=== PATIENT | female | born 1955 | race Caucasian/White ===

== ENCOUNTER → 2018-07-09 13:06 | Outpatient (CLI) | payer OTHER, SELFPAY ==
--- NOTE | 2018-07-09 13:14 | BI_ITS ---
MAMMOGRAPHY - BILATERAL SCREENING REASON FOR EXAM: Female, 63 years old. Routine annual screening examination. PERTINENT HISTORY: Non-contributory. TECHNIQUE: Digital bilateral breast james (3D mammographic acquisition) in the CC and MLO projections. 2-D mediolateral oblique (MLO) and craniocaudad (CC) views of both breasts were obtained. CAD: Full Field Digital Mammography with Computer Added Detection was performed. COMPARISON: Comparison is made with prior examination dated September 18, 2013. FINDINGS: Breast Composition: The breasts are heterogeneously dense, which may obscure small masses. There are no dominant masses or suspicious calcifications. Stable calcifications in the right breast most likely secretory in nature. No other significant abnormalities are identified. There has been no significant change since the prior study. BI/SCREENING MAMM (CAD), BILAT IMPRESSION: Stable bilateral screening mammogram. Yearly follow-up mammogram recommended. (A) ASSESSMENT CATEGORY: BIRADS Category 2: Benign. A letter regarding these results will be sent to the patient by the facility within 30 days. Approximately 10% of breast cancers are not detected by mammography. A normal mammogram should not delay biopsy of a clinically suspicious abnormality. [id number] Electronically Signed: Salomón Roberson MD at 8:59 EST Tel [phone], Service support ,
== END ==
PROVIDERS: Family Provider Internal Medicine; PCP Internal Medicine
DX: Z12.31 Encounter for screening mammogram for malignant neoplasm of breast (principal)
CPT/HCPCS: 77063; 77067

== ENCOUNTER → 2021-01-25 12:53 | Outpatient (CLI) | payer MEDICARE, SELFPAY ==
--- NOTE | 2021-01-25 12:59 | EKG12_ITS ---
Test Reason : ROUTINE Blood Pressure : / mmHG Vent. Rate : 097 BPM Atrial Rate : 097 BPM P-R Int : 142 ms QRS Dur : 088 ms QT Int : 332 ms P-R-T Axes : 067 075 081 degrees QTc Int : 421 ms Normal sinus rhythm Normal ECG Confirmed by MARIA R POSEY, HERMANN ([id number]), editor & co founder JAVIER GARCIA ([id number]) on 01/28/2021 1:34:14 PM Referred By: Maxine Stephens Confirmed By:HERMANN HECK MD
== END ==
PROVIDERS: Referring Provider Nurse Practitioner Adult Health; Visit Provider Nurse Practitioner Adult Health
DX: R00.2 Palpitations (principal)
CPT/HCPCS: 93005

== ENCOUNTER 2021-08-12 16:31 | Outpatient (CLI) | payer MEDICARE, SELFPAY ==
--- NOTE | 2021-08-12 16:45 | RAD_ITS ---
STUDY: XR Shoulder Min 2 Views REASON FOR EXAM: Female, 66 years old. PAIN TECHNIQUE: XR Shoulder Min 2 Views COMPARISON: None. FINDINGS: Normal glenohumeral articulation. There is degenerative arthrosis of the acromioclavicular joint without inferior osseous spur formation. Normal acromion. Normal humeral head and visualized proximal humerus. There is periarticular soft tissue calcification consistent with a calcific tendinitis. Normal visualized pulmonary apex. RAD/Shoulder min 2 Views IMPRESSION: There is degenerative arthrosis of the acromioclavicular joint without inferior osseous spur formation. There is periarticular soft tissue calcification consistent with a calcific tendinitis. Electronically Signed: Genaro Cortez MD at 18:56 EST Reading Location ID and State: [facility] / [place] , Service support ,
== END 2021-08-12 23:59 | disposition home or self-care (01) ==
PROVIDERS: Referring Provider Nurse Practitioner Adult Health; Visit Provider Nurse Practitioner Adult Health
DX: M25.511 Pain in right shoulder (principal)
CPT/HCPCS: 73030

== ENCOUNTER 2021-08-30 11:20 | Outpatient (CLI) | payer MEDICARE, SELFPAY ==
[2021-08-30 12:38] LABS: Absolute Lymphocyte Count 2.13 X10^3/uL (0.83-4.51); Absolute Neutrophil Count 3.5 X10^3/uL (2.0-7.7); Basophil# 0.07 X10^3/uL; Basophil% 1.1 % (0-1); Eosinophil# 0.27 X10^3/uL; Eosinophils% 4.2 % (0-5); Hemoglobin 14.2 g/dL (12.0-15.0); Lymphocyte # 2.13 X10^3/ul (0.83-4.51); Lymphocyte % 33.1 % (19-41); Mean Corpuscular Volume 90.7 fL (81-99); Monocyte# 0.42 X10^3/uL; Monocyte% 6.5 % (0-10); NRBC Flagged by Analyzer 0 % (0-5); Neutrophil # 3.53 X10^3/uL (2.7-7.7); Neutrophil % 54.8 % (47-70); Platelet Count 326 K/mm3 (150-450); RBC Distribution Width CV 12.7 % (11.6-14.6); RBC Distribution Width SD 42.3 fl (35.1-43.9); Red Blood Count 4.74 M/mm3 (4.2-5.4); White Blood Count 6.4 K/mm3 (4.4-11.0)
[2021-08-30 13:42] LABS: ALB/GLOB Ratio 1.1 RATIO (0.9-2.4); AST(SGOT) 33 U/L (15-37); Alanine Aminotransfer ALT/SGPT 58 U/L (13-56); Albumin, Serum 3.8 g/dL (3.2-5.0); Alkaline Phosphatase 65 U/L (45-117); Anion Gap 5 (5-15); BUN 12 mg/dL (7-18); BUN/Creat Ratio 19.1 RATIO (10-20); Calcium,Total 8.8 mg/dL (8.5-10.1); Chloride 106 mmol/L (98-107); Creatinine, Serum 0.63 mg/dL (0.55-1.02); EST Glomerular Filtration Rate 101 mL/min (>60); Est Glom Filt Rate - Afr Amer 122 mL/min (>60); Globulin 3.6 g/dL (2.2-4.2); Glucose 199 mg/dL (74-106); Potassium 4.2 mmol/L (3.5-5.1); Protein, Total 7.4 g/dL (6.4-8.2); Sodium Level 139 mmol/L (136-145); Thyroid Stim Hormone (TSH) 1.22 uIU/mL (0.358-3.74)
== END 2021-08-30 23:59 | disposition home or self-care (01) ==
LOC: LAB 11:21
PROVIDERS: Referring Provider Nurse Practitioner Adult Health; Visit Provider Nurse Practitioner Adult Health
DX: E11.65 Type 2 diabetes mellitus with hyperglycemia (principal)
CPT/HCPCS: 36415; 80053; 84443; 85025

== ENCOUNTER 2021-09-21 14:00 | Outpatient (RCR) | payer MEDICARE, SELFPAY ==
--- NOTE | 2021-08-17 11:15 | HP.PTEVAL_ITS ---
Patient's Visit Information JESSICA POPE is a 66 year old F referred to Physical Therapy by LILIANE Hawthorne with a diagnosis of R shoulder pain. Date of Evaluation: 08/17/21 Physical Therapist: Deepak Roque DPT, OCS, CSCS - Visit Plan Frequency: 2-3x /Week Duration: 4-6 Weeks Plan: 2-3x/week for 4-6 weeks for. 1. US R supraspinatus. 2. R shoulder mobs and ROM focus flexion and IR and stretch corss body and sleeper as tolerated. 3. RC and postural strength. 4. STM R shoulder, CFM as needed. 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 She has R shoulder pain and is R handed. Posterior R shoulder pain and top of shoulder. It is worse to lie down at night and wakes her up at times. It has been hurting a couple weeks. May have flared it shovelling snow but not a certain instance where she noted it. She is mostly comfortable at rest, stretching it across her body hurts, reaching OH hurts but she can do it. Hurts to reach behind her and to fasten seat belt. Has tried acetominophen and lidocaine. 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 Basic ADLs nare getting done but can be painful. - Pain R shoulder Pain Intensity (Out of 10): 1 Pain Intensity Range: 0, 8 - Objective Posture is forward head and protracted scapula. Tender to palpation R supraspinatus insertion moderately. + HK and + neer on R, - ext rotation lag test, - drop arm. Cervical aROM is painfree and 55 ext adn 60 B rotation. Scap mobility is fair and symmetrical. L shoulder AROM is 150 elevation and 75 ext rotation and L5 IR. R shoulder AROM 130 elevation and 70 ext rotation adn PSIS IR all limited by pain and slightly better passively but limited by pain. Elbow and wrist aROM WNL and painfree. reflexes 2/3 bi and triceps. Sensation UE WNL to gross light touch. Gait and trasnfers are I. needed cues to put coat on without pain. r shoulder strength ext rotation 3+ and painful , IR 4- painful, elevation 4- and painful empty can and abduction and flexion. L shoulder 4-/5 - Balance/Special Test Scores Quick DASH Score: 29.5450 - Goals Goal 1:: Full aROM R shoulder without pain 150 flexion and L5 IR. Goal Time Frame: 4-6 Weeks Goal 2:: Patient feel 75% improvement in overall condition with pain 1/10 at worst. Goal Time Frame: 4-6 Weeks Goal 3:: I appropr HEP to minimize future problem Goal Time Frame: 4-6 Weeks Goal 4:: Quick DASH score 15 or better Goal Time Frame: 4-6 Weeks - Rehabilitation Potential Physical Therapy Diagnosis: R shoulder impingement tendonitis/degeneration Rehabilitation Potential: Fair - Anticipated Interventions Patient/Client Instruction: Educate patient on: Condition, Plan of Care For the Purpose of:: To decrease pain, To increase ROM, To improve muscle performance and motor function, To increase tolerance to activity/condition/position, To improve ability of physical actions for home/community/work/leisure Therapeutic Exercise to Include: Strength training, Postural training, Flexibilty training, Passive ROM, Active ROM, Scapular Strength/Stabilization For the Purpose of:: To decrease pain, To increase ROM, To improve nutrient delivery to tissue, To improve muscle performance and motor function, To improve ability of physical actions for home/community/work/leisure Manual Therapy Techniques to Include: Mobilization, Passive ROM, Soft tissue mobilization For the Purpose of:: To decrease pain, To increase ROM, To improve muscle performance and motor function, To increase tolerance to activity/condition/position Ultrasound (thermal/non thermal): Yes For the Purpose of:: To decrease pain, To decrease swelling/inflammation Thank you for the opportunity to evaluate your patient. For Medicare and Medicare HMO plans, please review the plan of care and approve it. It will need to be FAXED BACK to us at [phone] for Medicare purposes. For Medicare only, by signing this I certify the plan of care. Please let me know if there are questions or concerns regarding this plan of care. Physician Signature: Date:
--- NOTE | 2021-09-06 09:53 | HP.PTREVAL ---
Georgie Red, MARISSA-C, It has been my pleasure to treat JESSICA POPE over the last 7 visits for R shoulder pain. Please see the progress note below for an update on the physical therapy plan of care! Subjective: Getting better. Less pain at night and can sleep thru the night. Feels popping at times. Paion is much less. Up to 3/10 over the weekend with reaching up or behind. Feels good at rest. Still unscrewing jars can be painful. Will see ortho at [facility] in September. Objective/Function: Full aROM but end range IR still painful and slow, painful arc with elevation. External rotation still mildly painful to resist. Plan Plan: f/u two weeks to recheck R shoulder and d/c if doing better with IR, resisted Er and elevation. Will see ortho in 3-4 weeks and we can help her with that decision. Balance/Gait/Functional tests - Balance/Special Test Scores Quick DASH Score: 15.9075 Goals Goal 1:: Full aROM R shoulder without pain 150 flexion and L5 IR. Goal Time Frame: 4-6 Weeks Goal Progress: Goal Met ROM with pain IR Goal 2:: Patient feel 75% improvement in overall condition with pain 1/10 at worst. Goal Time Frame: 4-6 Weeks Goal Progress: Goal Met Goal 3:: I appropr HEP to minimize future problem Goal Time Frame: 4-6 Weeks Goal Progress: Goal Met Goal 4:: Quick DASH score 15 or better Goal Time Frame: 4-6 Weeks Goal Progress: Progressing Anticipated Interventions Patient/Client Instruction: Educate patient on: Condition, Plan of Care For the Purpose of:: To decrease pain, To increase ROM, To improve muscle performance and motor function, To increase tolerance to activity/condition/position, To improve ability of physical actions for home/community/work/leisure Therapeutic Exercise to Include: Strength training, Postural training, Flexibilty training, Passive ROM, Active ROM, Scapular Strength/Stabilization For the Purpose of:: To decrease pain, To increase ROM, To improve nutrient delivery to tissue, To improve muscle performance and motor function, To improve ability of physical actions for home/community/work/leisure Manual Therapy Techniques to Include: Mobilization, Passive ROM, Soft tissue mobilization For the Purpose of:: To decrease pain, To increase ROM, To improve muscle performance and motor function, To increase tolerance to activity/condition/position Ultrasound (thermal/non thermal): Yes For the Purpose of:: To decrease pain, To decrease swelling/inflammation Please do not hesitate to contact me at [phone] by phone or if you have questions or concerns regarding this new plan of care! Sincerely, Deepak Roque, DPT, OCS, CSCS
--- NOTE | 2021-09-21 14:37 | HP.PTDCSUM ---
It has been my pleasure to treat JESSICA POPE referred by LILIANE Hawthorne, with the diagnosis of R shoulder pain for a total of 8 visit(s). Discharge Date: 09/21/21 Please see the following information for a summary of their discharge status. Subjective: Doing OK. Did exercises most days. Still has problems at night with pain. Pain in shoulder 6/10. Lifting hurts to 8/[address] Donald for shoulder next week. Activities are OK outside of heavier housework like vaccuuming and lifting heavier objects. Getting dressed behind her can hurt. Non compliant with exercises R shoulder Pain Intensity (Out of 10): 6 % Improvement: 50 Objective/Function: Full aROM R shouldr with some pain end range flexiona dn IR. 155 flexion. Strength is 4/5 without pain except empty can and flexion. Goal 1:: Full aROM R shoulder without pain 150 flexion and L5 IR. Goal Progress: Goal Met ROM with pain IR Goal 2:: Patient feel 75% improvement in overall condition with pain 1/10 at worst. Goal Progress: Goal Met Goal 3:: I appropr HEP to minimize future problem Goal Progress: Goal Met Goal 4:: Quick DASH score 15 or better Goal Progress: Not Progressing Plan: d/c to HEP, pt to ortho doctor next week appropriately. Discharge Comments: Pt to continue with HEP and see ortho next week. If there are questions or concerns regarding this patient's physical therapy, please feel free to call me at [phone]. Thank you for the referral of this patient. Sincerely, Deepak Roque, DPT, OCS, CSCS Balance/Gait/Functional tests - Balance/Special Test Scores Quick DASH Score: 18.1800
== END 2021-09-21 14:40 | disposition home or self-care (01) ==
LOC: PT 14:00
PROVIDERS: Referring Provider Nurse Practitioner Adult Health; Visit Provider Nurse Practitioner Adult Health
DX: M25.511 Pain in right shoulder (principal)
CPT/HCPCS: 97110; 97140; 97161; 97164; 97530

== ENCOUNTER → 2022-03-10 | Outpatient (CLI) | payer MEDICARE, SELFPAY ==
[2022-03-10 11:32] LABS: Anion Gap 8 (5-15); BUN 11 mg/dL (7-18); BUN/Creat Ratio 18.7 RATIO (10-20); Chloride 104 mmol/L (98-107); Cholesterol 115 mg/dL (200); Creatinine, Serum 0.59 mg/dL (0.55-1.02); EST Glomerular Filtration Rate 109 mL/min (>60); Est Glom Filt Rate - Afr Amer 131 mL/min (>60); Glucose 137 mg/dL (74-106); High Density Lipoprotein 51 mg/dL; Potassium 3.9 mmol/L (3.5-5.1); Sodium Level 139 mmol/L (136-145); Triglycerides 144 mg/dL; Very Low Density Lipoprotein 29 mg/dL (5-40)
== END | disposition home or self-care (01) ==
DX: E11.65 Type 2 diabetes mellitus with hyperglycemia (principal)
CPT/HCPCS: 36415; 80048; 80061

== ENCOUNTER 2022-06-04 08:40 | Emergency (ER) | payer MEDICARE, SELFPAY ==
[2022-06-04 08:42] VITALS: BP 147/71; PULSE 105; RESP 16; TEMP 36.4; O2SAT 99; BMI 28.3
--- NOTE | 2022-06-04 09:12 | RAD_ITS ---
STUDY: X-RAY - LEFT FOOT CLINICAL: Female, 67 years old. Trauma TECHNIQUE: 3 view(s) of the foot. COMPARISON: None. FINDINGS: There are no demonstrated acute fractures. The bony structures are mildly demineralized. Moderate-sized sushma are calcaneal spur noted. Mild cortical osteophyte formation is also present over the dorsum of the navicular cuneiform and second TMT articulation. Normal talus, calcaneus, and tarsal bones. Normal visualized subtalar, talonavicular, calcaneocuboid, tarsal and tarsometatarsal articulations. Normal metatarsi. Normal metatarsophalangeal joint of the great toe. There is hypertrophy and degeneration of the sesamoid bones of the great toe. Normal interphalangeal joint of the great toe. Normal phalanges of the great toe. Normal second through fifth metatarsophalangeal joints. Normal interphalangeal joints and phalanges of the lesser toes. The soft tissue structures are unremarkable. There is no demonstrated fracture. RAD/Foot min 3 Views IMPRESSION: 1. No visualized acute fracture. Scattered degenerative changes throughout the foot. Electronically Signed: George Latif MD at 9:32 EST ,
--- NOTE | 2022-06-04 09:12 | RAD_ITS ---
STUDY: X-RAY - LEFT KNEE REASON FOR EXAM: Female, 67 years old. INJURY TECHNIQUE: 4 view(s) of the knee. COMPARISON: None. FINDINGS: There is a mild impaction fracture with slight concavity/depression of the articular surface of the lateral tibial plateau associated with a moderate size joint effusion. No additional fractures are seen. Normal visualized distal femur. Normal fibula. Normal proximal tibiofibular articulation. Normal medial femorotibial compartment. There is mild degenerative arthrosis of the lateral femorotibial compartment. There is moderate degenerative arthrosis of the patellofemoral articulation. The soft tissue structures are unremarkable. RAD/Knee 4 or More Views IMPRESSION: 1. Mild impaction fracture of the lateral tibial plateau and moderate size joint effusion Electronically Signed: George Latif MD at 9:34 EST ,
[2022-06-04] MEDS: oxyCODONE 5 MG Tablet PO (10:35)
--- NOTE | 2022-06-04 11:10 | EX.ED.DYSGE1 ---
HPI History of Present Illness Chief Complaint: Lower Extremity Injury [facility] Medical History (Updated 06/04/22 @ 11:[address] Lev Sethi MD) Diabetes mellitus High cholesterol HTN (hypertension) Home Medications dulaglutide 0.75 mg/0.5 mL subcutaneous pen injector (Trulicity) 0.75 mg subcut QWEEK 06/04/22 [History Last Taken Unknown] oxycodone-acetaminophen 5 mg-325 mg tablet (Percocet) 1 tab PO Q6H PRN pain 5 days #20 tabs 06/04/22 [Rx Last Taken Unknown] pioglitazone 30 mg tablet 30 mg PO DAILY 06/04/22 [History Last Taken Unknown] sitagliptin phosphate 50 mg-metformin 1,000 mg tablet (Janumet) 1 tab PO BID 06/04/22 [History Last Taken Unknown] Allergy/AdvReac Type Severity Reaction Status Date / Time SNAPPLE Allergy Swelling Uncoded 06/04/22 08:43 Social History Smoking Status: Never smoker EXAM Physical Exam Const Vital Signs: 06/04/22 08:42 Temperature 97.6 F L Temperature Source Temporal Pulse Rate 105 H Respiratory Rate 16 Blood Pressure 147/71 H Blood Pressure Mean 96 Pulse Ox 99 Oxygen Delivery Method Room Air MDM MDM MDM Narrative Medical decision making narrative: X-rays show impacted lateral tibial plateau fracture. I discussed case with orthopedics. Patient will have knee immobilizer, pain meds, we will are seeing if we can get a walker for her. She will follow-up as an outpatient. Radiography Diagnostic Testing: Clinical Impression(s) from Imaging Studies Foot X-Ray 06/04/22 09:12 IMPRESSION: 1. No visualized acute fracture. Scattered degenerative changes throughout the foot. Electronically Signed: George Latif MD at 9:32 EST , Knee X-Ray 06/04/22 09:12 IMPRESSION: 1. Mild impaction fracture of the lateral tibial plateau and moderate size joint effusion Electronically Signed: George Latif MD at 9:34 EST , X-rays of the foot show no acute process. These are read by radiology. X-rays of the knee looked at by me and read by radiology do show a lateral tibial plateau impaction fracture with moderate effusion. This is consistent with her injury and pain. Discharge Plan Triage Chief Complaint: Lower Extremity Injury ED Provider: Lev Sethi Dx/Rx/DC Orders Clinical Impression: Tibial plateau fracture, left, Fall at home Instructions: ED Fracture, Knee Prescriptions: New oxycodone-acetaminophen [Percocet] 5-325 mg tablet 1 tab PO Q6H PRN (Reason: pain) 5 Days Qty: 20 0RF No Action pioglitazone 30 mg tablet 30 mg PO DAILY Janumet 50-1,000 mg Tablet 1 tab PO BID Trulicity 0.75 mg/0.5 mL pen injector 0.75 mg SUBCUT QWEEK Other Ambulatory Orders: Walker (Routine) Location: None Selected Ordered By: Dr. Lev Sethi Primary Care Provider: [facility],Hamida Molina Referrals: Nasim Kenyon DO [Med Staff - Active Staff] - 5-7 Days [facility],Hamida Molina [Primary Care Provider] - Disposition Disposition: Home, Self Care
== END 2022-06-04 12:18 | disposition home or self-care (01) ==
PROVIDERS: Emergency Provider Emergency Medicine; Visit Provider Emergency Medicine
DX: S82.122A Displaced fracture of lateral condyle of left tibia, initial encounter for closed fracture (principal); E11.9 Type 2 diabetes mellitus without complications; W18.30XA Fall on same level, unspecified, initial encounter; Y92.009 Unspecified place in unspecified non-institutional (private) residence as the place of occurrence of the external cause; I10 Essential (primary) hypertension; E78.00 Pure hypercholesterolemia, unspecified; Z79.899 Other long term (current) drug therapy; Z79.84 Long term (current) use of oral hypoglycemic drugs
CPT/HCPCS: 73564; 73630; 99283

== ENCOUNTER 2023-05-27 19:41 | Emergency (ER) | payer MEDICARE, SELFPAY ==
[2023-05-27 19:42] VITALS: BP 164/70; RESP 18; TEMP 37.6; O2SAT 98
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
--- NOTE | 2023-05-27 20:00 | CT_ITS ---
INDICATION: cervical pain EXAMINATION: CT CERVICAL SPINE - CT Spine Cervical W/O Contrast Injection TECHNIQUE: Helically acquired images were obtained of the cervical spine. 2D reformatted images were reviewed. A radiation dose optimization technique was used for this scan. IV Contrast dosage and agent: None. RADIATION DOSAGE (If Supplied By Facility): CTDIvol = ( 18.66 ) mGy, DLP = ( 373.97 ) mGycm COMPARISON: None. FINDINGS: ALIGNMENT: No subluxation. Straightening of the normal curvature. MINERALIZATION: Normal. VERTEBRAL BODIES: No fracture or acute abnormality. DISC SPACES: Disc space narrowing with osteophytes most pronounced C5-C7. POSTERIOR ELEMENTS: Mild facet arthropathy at several levels. SPINAL CANAL: Decreased AP diameter secondary to posterior disc osteophytes most pronounced at C5-6 and C6-7. PARASPINAL SOFT TISSUES: Unremarkable. Carotid arterial calcifications bilaterally. OTHER: None. CT/Spine Cervical without Contras IMPRESSION: No evidence of fracture or subluxation. Straightening of the normal curve may be due to positioning or muscle spasm. Degenerative changes with mild multilevel central canal stenosis. If there are any neurologic findings, MRI recommended for further evaluation. Electronically Signed: Emeli Myles MD at 21:26 EST ,
[2023-05-27] MEDS: Acetaminophen 500 MG Tablet 1000 MG PO (20:14)
[2023-05-27] MEDS: 0.9% Normal Saline (1000mL) 1,000 ML 1000 ML IV (20:14)
[2023-05-27] MEDS: Ondansetron 4 MG/2 ML Vial IV (20:14)
[2023-05-27 20:24] LABS: Absolute Lymphocyte Count 0.93 X10^3/uL (0.83-4.51); Absolute Neutrophil Count 10.4 X10^3/uL (2.0-7.7); Basophil# 0.07 X10^3/uL; Basophil% 0.6 % (0-1); Eosinophils% 2.4 % (0-5); Hematocrit 39.3 % (37-47); Hemoglobin 12.8 g/dL (12.0-15.0); Lymphocyte # 0.93 X10^3/ul (0.83-4.51); Lymphocyte % 7.4 % (19-41); Mean Corp Hgb Conc 32.6 g/dL (32-36); Mean Corpuscular Hgb 28.8 pg (27.0-32.0); Mean Corpuscular Volume 88.3 fL (81-99); Mean Platelet Vol. 9.9 fl (6.2-12.0); Monocyte# 0.83 X10^3/uL; Monocyte% 6.6 % (0-10); NRBC Flagged by Analyzer 0 % (0-5); Neutrophil # 10.39 X10^3/uL (2.7-7.7); Neutrophil % 82.4 % (47-70); Platelet Count 283 K/mm3 (150-450); RBC Distribution Width CV 13.2 % (11.6-14.6); RBC Distribution Width SD 42.6 fl (35.1-43.9); Red Blood Count 4.45 M/mm3 (4.2-5.4); White Blood Count 12.6 K/mm3 (4.4-11.0)
[2023-05-27 20:34] LABS: ALB/GLOB Ratio 0.9 RATIO (0.9-2.4); AST(SGOT) 21 U/L (15-37); Alanine Aminotransfer ALT/SGPT 36 U/L (13-56); Albumin, Serum 3.4 g/dL (3.2-5.0); Alkaline Phosphatase 53 U/L (45-117); Anion Gap 8 (5-15); BUN 11 mg/dL (7-18); BUN/Creat Ratio 12.4 RATIO (10-20); Calcium,Total 9.1 mg/dL (8.5-10.1); Chloride 97 mmol/L (98-107); Creatinine, Serum 0.89 mg/dL (0.55-1.02); EST Glomerular Filtration Rate 67 mL/min (>60); Est Glom Filt Rate - Afr Amer 81 mL/min (>60); Globulin 3.8 g/dL (2.2-4.2); Glucose 327 mg/dL (74-106); Lipase 43 U/L (13-75); Potassium 4.3 mmol/L (3.5-5.1); Protein, Total 7.2 g/dL (6.4-8.2); Sodium Level 132 mmol/L (136-145)
[2023-05-27 20:43] LABS: Lactic Acid 4.7 mmol/L (0.4-1.9)
[2023-05-27] MEDS: Ketorolac 15 MG/ML Vial IV (20:59)
--- NOTE | 2023-05-27 21:06 | RAD_ITS ---
INDICATION: weakness EXAMINATION/TECHNIQUE: X-RAY - XR Chest 1 View AP portable. 9:02 PM COMPARISON: None. FINDINGS: LINES/DEVICES: None. LUNGS: No consolidation. No pneumothorax. MEDIASTINUM: Aorta is atherosclerotic. CARDIAC SIL[place]ETTE: Not enlarged. BONES AND SOFT TISSUES: No acute abnormalities. RAD/Chest 1 View (Portable) IMPRESSION: No evidence of active intrathoracic disease. Electronically Signed: Emeli Myles MD at 21:45 EST ,
[2023-05-27 21:22] LABS: Mucous, Urine 0 SEEN /hpf (<or=2+); Red Blood Cells-Urine 0 SEEN /hpf (0-5); Squamous Epithelial Cells - UA 0 SEEN /hpf (5-10)
[2023-05-27 21:31] LABS: Color, Urine Yellow (Yellow); Glucose, Dipstick 1000 mg/dl (Normal); Ketone-Dipstick 15 mg/dl (Negative); Leukocyte Esterase-Dipstick Negative /ul (Negative); Nitrite-Dipstick Positive (Negative); Occult Blood-Urine Negative /ul (Negative); Protein-Dipstick 15 mg/dl (Negative); Urine Bilirubin Dipstick Negative (Negative); Urine Clarity Clear (Clear); Urine Urobilinogen Normal (Normal)
[2023-05-27] MEDS: 0.9% Normal Saline (1000mL) 1,000 ML 999 ML IV ×2 (21:31→22:36)
[2023-05-27 21:36] LABS: Bacteria 1+ /hpf (None Seen); White Blood Cells 0-5 SEEN /hpf (0-5)
[2023-05-28 00:13] LABS: Reflex Lactate? Y
[2023-05-28 00:24] VITALS: BP 136/86; PULSE 76; RESP 16; TEMP 36.4; O2SAT 98
== END 2023-05-28 00:26 | disposition home or self-care (01) ==
PROVIDERS: Nurse Practitioner; Emergency Provider Student in an Organized Health Care Education/Training Program; Visit Provider Student in an Organized Health Care Education/Training Program
DX: U07.1 COVID-19 (principal); E11.9 Type 2 diabetes mellitus without complications; E87.20 Acidosis, unspecified
CPT/HCPCS: 70450; 71045; 72125; 80053; 81001; 83605; 83690; 85025; 87040; 87428; 96361; 96374; 96375; 99283; J7030; J7050; A4216; J2405

== ENCOUNTER → 2023-07-14 | Outpatient (CLI) | payer MEDICARE, SELFPAY ==
--- OUTSIDE RECORDS SUMMARY | 2023-07-14 11:46 | XMS RPT_ITS | CCD ---
Author Name Unknown Address [address] [place] [address] Organization [facility] Care Team Providers Care Search Engine Optimization Analyst Name Role Phone Lisa Díaz Primary Care Provider Swihart, Lisa L Unavailable Swihart, Lisa L Unavailable Stephens PROJECT SUPERINTENDENT, Armando K Primary Care Provider Swihart, Lisa L Unavailable Stephens PROJECT SUPERINTENDENT, Armando K Primary Care Provider Swihart, Lisa L Unavailable Stephens PROJECT SUPERINTENDENT, Armando K Primary Care Provider PHYSICIAN, NONE Primary Care Physician Unavailab mic STEPHENS ARMANDO K Primary Care Unavailable GIANA JARAMILLO Referring Unavailable STEPHENS, ARMANDO K Primary Care Unavailable GIANA JARAMILLO Attending Unavailable STEPHENS, ARMANDO K Primary Care Unavailable LIZ GUPTA Attending Unavailable LIZ GUPTA Referring Unavailable STEPHENS, ARMANDO K Primary Care Unavailable GRZEGORZ MERCADO Attending Unava ilable PHYSICIAN, NONE Primary Care Unavailable Allergies Allergy Classification Reported Allergen(s) Allergy Type Date of Onset Reaction(s) Facility (12 sources) Flavoring Agent; Translations: [FLAVORING AGENT] Drug Allergy 04-03-2012 Swelling, Itching, Anaphylaxis [facility] Work Phone: Medications Current Medications Medication Drug Class(es) Dates Sig (Normalized) Sig (Original) benoxinate hydrochloride 4 mg/ml / fluorescein sodium 2.5 mg/ml ophthalmic solution (1 source) Diagnostic Dye Start: 03-10-2022 End: 03-11-2022 fluorescein-benoxi sandra 0.25-0.4 % 1 Drop (FLURESS) phenylephrine hydrochloride 25 mg/ml ophthalmic solution (1 source) alpha-1 Adrenergic Agonist Start: 03-10-2022 End: 03-11-2022 PHENYLephrine 2.5 % 1 Drop (AK-DILATE, DAVE-SYNEPHRINE) proparacaine hydrochloride 5 mg/ml ophthalmic solution (1 source) Local Anesthetic Start: 03-10-2022 End: 03-11-2022 proparacaine 0.5 % 1 Drop (ALCAINE) tropicamide 10 mg/ml ophthalmic solution (1 source) Anticholinergic Start: 03-10-2022 End: 03-11-2022 tropicamide 1 % 1 Drop (MYDRIACYL) Completed/Discontinued Medications Medication Drug Class(es) Dates Sig (Normalized) Sig (Original) 8 hr acetaminophen 650 mg extended release oral tablet (11 sources) take 2 tablets by mouth every eight hours as needed acetaminophen 650 mg CR tablet Take 1,300 mg by mouth every 8 hours as needed for pain. 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; Translations: [Combined forms of age-related cataract, left eye] Chronic Diabetes mellitus with complications (11 sources) Type 2 diabetes mellitus; Translations: [Type 2 diabetes mellitus with diabetic polyneuropathy] Onset: 10-01-2020 10-01-2020 Chronic Diabetes mellitus without complication (12 sources) Type 2 diabetes mellitus without complication; Translations: [Type 2 diabetes mellitus without complications] Onset: 11-13-2013 06-21-2021 Chronic Disorders of lipid metabolism (11 sources) Hyperlipidemia; Translations: [Hyperlipidemia, unspecified] Onset: 05-28-2020 05-28-2020 Chronic Essential hypertension (11 sources) Essential hypertension; Translations: [Essential (primary) hypertension] Onset: 05-28-2020 05-28-2020 Chronic Glaucoma (1 source) Preglaucoma, unspecified, bilateral; Translations: [Preglaucoma, unspecified] Chronic Miscellaneous mental health disorders (11 sources) Psychophysiologic insomnia; Translations: [Psychophysiologic insomnia] Onset: 11-05-2013 06-21-2021 Chronic Osteoarthritis (12 sources) Arthritis of knee; Translations: [Unilateral primary osteoarthritis, unspecified knee] Onset: 05-15-2012 05-15-2012 Chronic Other acquired deformities (11 sources) Scoliosis deformity of spine; Translations: [Scoliosis, unspecified] Onset: 08-08-2014 08-08-2014 Chronic Other connective tissue disease (2 sources) Impingement syndrome of right shoulder region; Translations: [Impingement syndrome of right shoulder] Episodic Other eye disorders (1 source) Posterior vitreous detachment of right eye; Translations: [Vitreous degeneration, right eye] Chronic Other eye disorders (1 source) Disorder of lacrimal gland; Translations: [Dry eye syndrome of bilateral lacrimal glands] Episodic Other eye disorders (1 source) Excess skin of eyelid; Translations: [Dermatochalasis of right upper eyelid] Episodic Other inflammatory condition of skin (11 sources) Rosacea; Translations: [Rosacea, unspecified] Onset: 01-18-2014 01-18-2014 Chronic Other non-traumatic joint disorders (2 sources) Chronic pain of right upper limb; Translations: [Pain in right shoulder] Episodic Other non-traumatic joint disorders (5 sources) Pain in right knee; Translations: [Pain in joint, lower leg] Onset: 01-02-2023 Episodic Other non-traumatic joint disorders (1 source) Pain in left knee; Translations: [Pain in both knees, unspecified chronicity] Onset: 01-02-2023 Episodic Residual codes; unclassified (11 sources) Obstructive sleep apnea syndrome; Translations: [Obstructive sleep apnea (adult) (pediatric)] Onset: 05-05-2014 08-22-2014 Chronic Spondylosis; intervertebral disc disorders; other back problems (20 sources) Cervical spondylosis; Translations: [Spondylosis without myelopathy or radiculopathy, cervical region] Onset: 05-06-2014 05-06-2014 Chronic Past or Other Problems Problem Classification Problem Date Documented Da te Episodic/Chronic Acquired foot deformities (11 sources) Left foot drop; Translations: [Foot drop, left foot] Onset: 11-13-2013 08-22-2014 Episodic Other bone disease and musculoskeletal deformities (11 sources) Osteopenia; Translations: [Other specified disorders of bone density and structure, unspecified site] Onset: 01-18-2014 06-21-2021 Episodic Other connective tissue disease (11 sources) Pain in buttock; Translations: [Myalgia, other site] Onset: 12-23-2013 12-23-2013 Episodic Other connective tissue disease (11 sources) Calcific tendinitis of right shoulder; Translations: [Calcific tendinitis of right shoulder] Onset: 05-26-2015 05-26-2015 Episodic Other connective tissue disease (11 sources) Impingement syndrome of left shoulder region; Translations: [Impingement syndrome of left shoulder] Onset: 07-15-2019 07-15-2019 Episodic Other nutritional; endocrine; and metabolic disorders (11 sources) Weight loss; Translations: [Abnormal weight loss] Onset: 11-13-2013 06-02-2014 Episodic Other nutritional; endocrine; and metabolic disorders (11 sources) Overweight; Translations: [Overweight] Onset: 05-26-2015 05-26-2015 Episodic Other skin disorders (11 sources) Loss of hair; Translations: [Nonscarring hair loss, unspecified] Onset: 12-31-2013 08-22-2014 Episodic Residual codes; unclassified (11 sources) Insomnia; Translations: [Insomnia, unspecified] Onset: 03-03-2014 06-21-2021 Episodic Spondylosis; intervertebral disc disorders; other back problems (20 sources) Neck pain; Translations: [Cervicalgia] Onset: 09-20-2012 12-31-2013 Episodic Results Test Name Value Interpretation Reference Range Facil ity Encounters Encounter Date Encounter Type Care Provider Facility Start: 03-13-2023 End: 03-13-2023 ambulatory ARMANDO STEPHENS Facility:[facility] Start: 03-01-2023 End: 03-02-2023 ambulatory GRZEGORZ GALLO Facility: Start: 03-01-2023 End: 03-01-2023 Patient encounter procedure GRZEGORZ GALLO [facility] Start: 01-02-2023 End: 01-02-2023 Orders Only Giana Jaramillo MD Work Phone: Orthopaedics Procedures Date Procedure Procedure Detail Performing Clinician Start: 01-02-2023 Arthrocentesis aspir &/inj major jt/bursa w/o us Giana Jaramillo MD Work Phone: Start: 01-02-2023 Radiologic exam knee complete 4/more views Giana Jaramillo MD Work Phone: Start: 03-10-2022 Computerized ophthal ottoniel imaging optic nerve Emily Vidales MD Work Phone: Start: 12-20-2021 Arthrocentesis aspir &/inj major jt/bursa w/o us Giana Jaramillo MD Work Phone: Start: 09-30-2021 Arthrocentesis aspir &/inj major jt/bursa w/o us Giana Jaramillo MD Work Phone: Start: 12-30-2019 Mammography Giana hopkins MD Work Phone: Start: 02-18-2019 Adult depression scr eening assessment Giana Jaramillo MD Work Phone: Start: 01-08-2019 Colonoscopy Giana hopkins MD Work Phone: Plan of Treatment Date Care Activity Detail Author Start: 01-08-2029 Colonoscopy COLONOSCOPY [facility] Start: 01-08-2029 COLORECTAL CANCER SCREENING COLORECTAL CANCER SCREENING [facility] Start: 03-03-2024 Urine microalbumin profile [facility] Start: 01-05-2024 Hepatitis B surface antibody level LDL CHOLESTEROL [facility] Start: 11-17-2023 3 comp foot exam completed DIABETIC FOOT EXAM [facility] Start: 04-06-2023 Hemoglobin A1c/Hemoglobin.total in Blood HBA1C [facility] Start: 03-10-2023 Hepatitis C antibody, confirmatory test DILATED RETINAL EXAM [facility] Start: 02-24-2023 Influenza vaccination [facility] Start: 06-26-2022 ADVANCE DIRECTIVE DISCUSSION ADVANCE DIRECTIVE DISCUSSION [facility] Start: 06-26-2022 DEPRESSION ASSESSMENT DEPRESSION ASSESSMENT [facility] Start: 02-24-2022 Influenza vaccination [facility] Start: 07-21-2021 Hepatitis C antibody, confirmatory test DILATED RETINAL EXAM [facility] Start: 06-26-2021 ADVANCE DIRECTIVE DISCUSSION ADVANCE DIRECTIVE DISCUSSION [facility] Start: 06-26-2021 DEPRESSION ASSESSMENT DEPRESSION ASSESSMENT [facility] Start: 05-28-2021 Hepatitis B screening URINE ALBUMIN:CREATININE RATIO [facility] Start: 02-10-2021 BONE DENSITY BONE DENSITY [facility] Start: 02-10-2021 Bone Density Screening Bone Density Screening [facility] Start: 02-10-2021 PNEUMOVAX AGE 65 AND OVER WITH 5YR LOOKBACK (#1) PNEUMOVAX AGE 65 AND OVER WITH 5YR LOOKBACK (#1) [facility] Start: 12-31-2020 Hemoglobin A1c/Hemoglobin.total in Blood HBA1C [facility] Start: 12-29-2020 3 comp foot exam completed DIABETIC FOOT EXAM [facility] Start: 12-29-2020 Mammography [facility] Start: 02-19-2020 Adult depression screening assessment DEPRESSION SCREENING [facility] Start: 05-26-2017 Hepatitis B surface antibody level LDL CHOLESTEROL [facility] Start: 2016 Hepatitis B Vaccine (1 of 3 - Risk 3-dose series) Hepatitis B Vaccine (1 of 3 - Risk 3-dose series) [facility] Start: 2016 RSV Vaccine (1 - 1-dose 60+ series) RSV Vaccine (1 - 1-dose 60+ series) [facility] Start: 03-03-2015 Pneumococcal Vaccine: 65+ (2 - PCV) Pneumococcal Vaccine: 65+ (2 - PCV) [facility] Start: 03-03-2015 PNEUMOCOCCAL: 65+ (2 - PCV) PNEUMOCOCCAL: 65+ (2 - PCV) [facility] Start: 02-10-2006 SHINGRIX VACCINE (1 of 2) SHINGRIX VACCINE (1 of 2) [facility] Start: 02-10-2001 COLOGUARD (FIT-DNA) COLOGUARD (FIT-DNA) [facility] Start: 02-10-[address] COLONOGRAPHY [facility] Start: 02-10-2001 FECAL OCCULT BLOOD FECAL OCCULT BLOOD [facility] Start: 02-10-2001 SIGMOIDOSCOPY SIGMOIDOSCOPY [facility] Start: 02-10-1974 ANNUAL PCP TEAM CHRONIC DISEASE VISIT ANNUAL PCP TEAM CHRONIC DISEASE VISIT [facility] Start: 02-10-1974 BP CONTROLLED (<130/80) BP CONTROLLED (<130/80) [facility] Start: 02-10-1974 HIV SCREENING HIV SCREENING [facility] Start: 02-10-1961 COVID-19 VACCINE (1) COVID-19 VACCINE (1) [facility] Start: 1955 COVID-19 VACCINE (#1) COVID-19 VACCINE (#1) [facility] CORNEAL TOPOGRAPHY A TLAS OU (BOTH EYES) CORNEAL TOPOGRAPHY ATLAS OU (BOTH EYES) OPHT Imaging Routine Combined forms of age-related cataract of left eye 1 Occurrences starting 03/10/2022 [facility] Work Phone: Immunizations Immunization Date Immunization Notes Care Provider Margie mann 05-27-2016 influenza virus vacc ine, unspecified formulation Xr Mob Work Phone: [facility] 03-03-2014 pneumococcal polysaccharide vaccine, 23 valent Giana Jaramillo MD Work Phone: [facility] Work Phone: 03-03-2014 tetanus toxoid, redu abner diphtheria toxoid, and acellular pertussis vaccine, adsorbed Giana Jaramillo MD Work Phone: [facility] Work Phone: Payers Date Payer Category Payer Unknown [id number] 2021 Unknown ANTHEM BLUE CROS S AND BLUE SHIELD ANTHEM MEDIBLUE O [id number] 2021-Present [phone] [address] [place] [id number] O [id number] 2021 Unknown ANTHEM BLUE CROS S AND BLUE SHIELD ANTHEM MEDIBLUE O [id number] 2021-Present [phone] [address] [place] [address] O [id number] 2021 Unknown [id number] 1955 Unknown [id number] Social History Date Type Detail Facility Start: 03-10-2022 Tobacco smoking stat us UTIS Never smoked tobacco [facility] Work Phone: Start: 09-30-2021 End: 01-02-2023 Alcohol intake Current non-drinker of alcohol (finding) [facility] Start: 1955 Sex Assigned At Not on file [facility] Start: 09-20-2021 End: 01-03-2022 Exposure to SARS-CoV-2 (event) Not sure [facility] Work Phone: Start: 03-10-2022 Tobacco use and exposure Smokeless tobacco non-user [facility] Start: 11-16-2022 End: 01-02-2023 History of Social function [facility] Start: 11-16-2022 End: 01-02-2023 Tobacco use panel [facility] Adult Depression Screening Assessment 0 [facility] Tobacco smoking status No Smokin g Status Entered [facility] Sex Assigned At Female [facility] Medical Equipment Procedure Code Equipment Code Equipment Origin al Text Equipment Identifier Dates Lens Acrysof Ultrasert +18.5 Diopter Acrylic Iol 1 Piece Foldable Uv Blue - [id number] Start: 07-16-2020 Clinical Notes 07-16-2020 to 03-13-2023 Giana Jaramillo MD - 01/02/2023 12:00 PM EDTTelephone Encounter - Josef Lott - 03/23/2022 3:09 PM EDTTelephone Encounter - Josef Lott - 03/18/2022 1:38 PM EDTPatient Instructions Note Date & Type Note Facility 03-13-2023 Note HNO ID: [id number] Author: Renetta Izaguirre RT(R) Service: Radiology Author Type: Technologist Type: Progress Notes Filed: 03/13/2023 11:46 AM Note Text: Radiology Service Progress Note PATIENT NAME: Jessica Zacarias DATE OF SERVICE: March 13, 2023 TIME: 11:33 AM PATIENT IDENTITY VERIFICATION COMPLETED USING TWO (2) IDENTIFIERS: Name and Date of confirmed by patient verbally. FALL SCREENING: Has the patient had 2 falls in the last year or 1 fall with injury or currently using an Ambulatory Assistive Device (Walker, Cane, Wheelchair, Crutches, etc.)? No PATIENT GENDER DATA: Female. status: : No status: NO. PATIENT RELEVANT IMPLANT DATA REVIEWED: Yes RADIOLOGY DEPARTMENT: General X-ray: Exam(s) Completed: Pelvis X-Ray: Pelvis with Hip Left PERIPHERAL IV DATA: Not applicable SIGNED BY: RT Yadira(R) March 13, 2023 11:33 AM [facility] 01-02-2023 Note HNO ID: [id number] Author: Giana Jaramillo MD Service: ? Author Type: Physician Type: Progress Notes Filed: 02/06/2023 5:57 PM Note Text: Giana Jaramillo MD Department of Orthopaedics Orthopaedics [address] [address] Dept: [phone] Dept January 02, 2023 CHIEF COMPLAINT: Follow Up of the Right Knee and Follow Up of the Left Knee HPI Patient states she had pain in his knees last week but denies any pain today. Patient states injections helped for about 3 months. She would like injections today. Patient states on 06/04 last year she fell at home and fractured her left tibia. Patient is doing great. New x-rays done today. ASSESSMENT: M25.561, M25.562, G89.29 Chronic pain of both knees (primary encounter diagnosis) M17.0 Primary osteoarthritis of both knees PLAN: bilateral knee injections Ms. Jessica Zacarias was advised as to contrast therapies and/or to take analgesics/anti-inflammatories as needed and all contraindications were reviewed. OBJECTIVE: Ms. Jessica Zacarias is a pleasant 67 year old in no apparent distress. Gen:There were no vitals taken for this visit. nl development, non obese, no deformities ENT: Normocephalic, normal hearing, moist mucosa CV: Pulses:DP/PT= 2+ and symmetric, capillary refill < 2 secs, no peripheral edema/varicosities Skin: no rash, bruising or lesions. Good turgor. Psych: cooperative and appropriate, alert and oriented x 3, good mood and affect. Musculoskeletal: Stable knee exams Large Joint Arthro/Inj: bilateral knee joints Informed Consent Consent Obtained: Verbal Dolph Protocol A moment to CARE was completed. SIGN IN Personnel directly involved with the procedure wore the appropriate PPE. Special Equipment: N/A Patient/Surrogate Stated/Verified: Patient name, Date of , Relevant allergies and Intended procedure TIME OUT Intended patient and procedure match the source document(s). Consent documented and matches the intended procedure. Relevant labs, photos, and/or imaging studies have been reviewed. Correct side/site marked and visible. Medications required for procedure verified. No fire risk assessment and interventions applicable. No implant(s) inserted. 01/02/2023 12:38 PM The procedure site was prepped in the usual sterile fashion. Site: bilateral knee joints Medications (Right): 6 mg betamethasone acetate-betamethasone sodium phosphate 6 mg/mL Medications (Left): 6 mg betamethasone acetate-betamethasone sodium phosphate 6 mg/mL Anesthetics (Right): 4 mL lidocaine (PF) 10 mg/mL (1 %) Anesthetics (Left): 4 mL lidocaine (PF) 10 mg/mL (1 %) Outcome: Tolerated well, no immediate complications Post-injection instructions were reviewed with the patient and the patient voiced understanding of these instructions. SIGN OUT All instruments, equipment, possible retained foreign bodies accounted for. Supporting Subjective Information Below: Past Surgical History: PAST SURGICAL HISTORY Procedure Laterality Date CATARACT EXTRACTION W/ INTRAOCULAR LENS IMPLANT HX Right 07/16/2020 COLONOSCOPY FLX DX W/COLLJ SPEC WHEN PFRMD 07/19/12 Colonoscopy repeat 5 years COLONOSCOPY FLX DX W/COLLJ SPEC WHEN PFRMD 07/19/12 Colonoscopy COLONOSCOPY FLX DX W/COLLJ SPEC WHEN PFRMD 01/08/2019 Colonoscopy NEUROPLASTY AND/TRANSPOS MEDIAN NRV CARPAL TUNNE 2004 Carpal tunnel decomp bilateral PAST SURGICAL HISTORY OF c-sections x 5 PAST SURGICAL HISTORY OF 2003 Trigger finger release left ring finger and right middle and ring fingers PAST SURGICAL HISTORY OF 2011 Trigger finger release Medications: Current Outpatient Medications Medication Sig oxybutynin ER (DITROPAN XL) 10 mg 24 hr tablet Take 1 tablet by mouth once daily. propylene glycol (SYSTANE BALANCE OPHTHALMIC) Use in eyes. dulaglutide (TRULICITY) 0.75 mg/0.5 mL pen injector Inject 0.75 mg subcutaneously one time a week. ascorbic acid, vitamin C, (VITAMIN C) 500 mg tablet Take 500 mg by mouth once daily. acetaminophen 650 mg CR tablet Take 1,300 mg by mouth every 8 hours as needed for pain. SITagliptin-metFORMIN (JANUMET) 50-1,000 mg per tablet Take 1 tablet by mouth twice daily with meals. pioglitazone (ACTOS) 30 mg tablet Take 1 tablet by mouth once daily. lisinopril 2.5 mg tablet Take 1 tablet by mouth once daily. glimepiride (AMARYL) 4 mg tablet Take 2 tablets by mouth once daily atorvastatin (LIPITOR) 10 mg tablet Take 10 mg by mouth once daily. CPAP Pressure Change CPAP to 9 cmH20. Dx STEPHANIE multivitamin,yn-ubdd-wtekngzn (COMPLETE MULTIVITAMIN) tab Take 1 tablet by mouth once daily. moxifloxacin (VIGAMOX) 0.5 % ophthalmic solution Use 1 Drop in the left eye four times daily. Start 2 days before surgery, then continue afterwards. (Patient not taking: Reported on 11/16/2022) prednisoLONE acetate (PRED FORTE, ECONOPRED PLUS) 1 % ophthalmic suspension Use 1 Drop in the left eye four times da (more content not included)... [facility] 01-02-2023 Note HNO ID: [id number] Author: RT Stephan(R) Service: ? Author Type: Natural Foods Clerk Type: Progress Notes Filed: 01/02/2023 11:57 AM Note Text: Radiology Service Progress Note PATIENT NAME: Jessica Zacarias DATE OF SERVICE: January 02, 2023 TIME: 11:39 AM PATIENT IDENTITY VERIFICATION COMPLETED USING TWO (2) IDENTIFIERS: Name and Date of confirmed by patient verbally. FALL SCREENING: Has the patient had 2 falls in the last year or 1 fall with injury or currently using an Ambulatory Assistive Device (Walker, Cane, Wheelchair, Crutches, etc.)? No PATIENT GENDER DATA: Female. status: : No status: NO. PATIENT RELEVANT IMPLANT DATA REVIEWED: Yes RADIOLOGY DEPARTMENT: General X-ray: Exam(s) Completed: Lower Extremity X-Ray(s): Knee, AP / Lat / Tunne / Merchant Bilateral PERIPHERAL IV DATA: Not applicable SIGNED BY: RT Stephan(R) January 02, 2023 11:39 AM [facility] 01-02-2023 History of Presen t illness Narrative Associated Order(s): Large Joint Arthro/Inj: bilateral knee joints Post-Procedure Diagnose(s): Chronic pain of both knees; Primary osteoarthritis of both knees Giana Jaramillo MD Department of Orthopaedics Orthopaedics [address] [facility] [address] Dept: [phone] Dept January 02, 2023 CHIEF COMPLAINT: Follow Up of the Right Knee and Follow Up of the Left Knee HPI Patient states she had pain in his knees last week but denies any pain today. Patient states injections helped for about 3 months. She would like injections today. Patient states on 06/04 last year she fell at home and fractured her left tibia. Patient is doing great. New x-rays done today. ASSESSMENT: M25.561, M25.562, G89.29 Chronic pain of both knees (primary encounter diagnosis) M17.0 Primary osteoarthritis of both knees PLAN: bilateral knee injections Ms. Jessica Zacarias was advised as to contrast therapies and/or to take analgesics/anti-inflammatories as needed and all contraindications were reviewed. OBJECTIVE: Ms. Jessica Zacarias is a pleasant 67 year old in no apparent distress. Gen:There were no vitals taken for this visit. nl development, non obese, no deformities ENT: Normocephalic, normal hearing, moist mucosa CV: Pulses:DP/PT= 2+ and symmetric, capillary refill < 2 secs, no peripheral edema/varicosities Skin: no rash, bruising or lesions. Good turgor. Psych: cooperative and appropriate, alert and oriented x 3, good mood and affect. Musculoskeletal: Stable knee exams Large Joint Arthro/Inj: bilateral knee joints Informed Consent Consent Obtained: Verbal Dolph Protocol A moment to CARE was completed. SIGN IN Personnel directly involved with the procedure wore the appropriate PPE. Special Equipment: N/A Patient/Surrogate Stated/Verified: Patient name, Date of , Relevant allergies and Intended procedure TIME OUT Intended patient and procedure match the source document(s). Consent documented and matches the intended procedure. Relevant labs, photos, and/or imaging studies have been reviewed. Correct side/site marked and visible. Medications required for procedure verified. No fire risk assessment and interventions applicable. No implant(s) inserted. 01/02/2023 12:38 PM The procedure site was prepped in the usual sterile fashion. Site: bilateral knee joints Medications (Right): 6 mg betamethasone acetate-betamethasone sodium phosphate 6 mg/mL Medications (Left): 6 mg betamethasone acetate-betamethasone sodium phosphate 6 mg/mL Anesthetics (Right): 4 mL lidocaine (PF) 10 mg/mL (1 %) Anesthetics (Left): 4 mL lidocaine (PF) 10 mg/mL (1 %) Outcome: Tolerated well, no immediate complications Post-injection instructions were reviewed with the patient and the patient voiced understanding of these instructions. SIGN OUT All instruments, equipment, possible retained foreign bodies accounted for. Supporting Subjective Information Below: Past Surgical History: PAST SURGICAL HISTORY Procedure Laterality Date CATARACT EXTRACTION W/ INTRAOCULAR LENS IMPLANT HX Right 07/16/2020 COLONOSCOPY FLX DX W/COLLJ SPEC WHEN PFRMD 07/19/12 Colonoscopy repeat 5 years COLONOSCOPY FLX DX W/COLLJ SPEC WHEN PFRMD 07/19/12 Colonoscopy COLONOSCOPY FLX DX W/COLLJ SPEC WHEN PFRMD 01/08/2019 Colonoscopy NEUROPLASTY &/TRANSPOS MEDIAN NRV CARPAL TUNNE 2004 Carpal tunnel decomp bilateral PAST SURGICAL HISTORY OF c-sections x 5 PAST SURGICAL HISTORY OF 2003 Trigger finger release left ring finger and right middle and ring fingers PAST SURGICAL HISTORY OF 2011 Trigger finger release Medications: Current Outpatient Medications Medication Sig oxybutynin ER (DITROPAN XL) 10 mg 24 hr tablet Take 1 tablet by mouth once daily. propylene glycol (SYSTANE BALANCE OPHTHALMIC) Use in eyes. dulaglutide (TRULICITY) 0.75 mg/0.5 mL pen injector Inject 0.75 mg subcutaneously one time a week. ascorbic acid, vitamin C, (VITAMIN C) 500 mg tablet Take 500 mg by mouth once daily. acetaminophen 650 mg CR tablet Take 1,300 mg by mouth every 8 hours as needed for pain. SITagliptin-metFORMIN (JANUMET) 50-1,000 mg per tablet Take 1 tablet by mouth twice daily with meals. pioglitazone (ACTOS) 30 mg tablet Take 1 tablet by mouth once daily. lisinopril 2.5 mg tablet Take 1 tablet by mouth once daily. glimepiride (AMARYL) 4 mg tablet Take 2 tablets by mouth once daily atorvastatin (LIPITOR) 10 mg tablet Take 10 mg by mouth once daily. CPAP Pressure Change CPAP to 9 cmH20. Dx STEPHANIE multivitamin,vg-[id number] (COMPLETE MULTIVITAMIN) tab Take 1 tablet by mouth once daily. moxifloxacin (VIGAMOX) 0.5 % ophthalmic solution Use 1 Drop in the left eye four times daily. Start 2 days before surgery, then continue afterwards. (Patient not taking: Reported on 11/16/2022) prednisoLONE acetate (PRED FORTE, ECONOPRED PLUS) 1 % ophthalmic suspension Use 1 Drop in the left eye four times daily. Start day of surgery. (Patient not taking: Reported on 11/16/2022) keTORolac (ACULAR) 0.5 % ophthalmic solution Use 1 Drop in the left eye four times daily. Start 2 days before surgery, then continue afterwards. (Patient not taking: Reported on 11/16/2022) meloxicam (MOBIC) 15 mg tablet Take 1 tablet by mouth once daily. (Patient not taking: Reported on 11/16/2022) Zinc 50 mg tab Take 50 mg by mouth once daily. (Patient not taking: Reported on 11/16/2022) folic acid 1 mg tablet Take 1 mg by mouth once daily. (Patient not taking: Reported on 11/16/2022) Cholecalciferol, Vitamin D3, 25 mcg (1,000 unit) cap Take 1,000 Units by mouth once daily. Take 5 capsules per day (Patient not taking: No sig reported) COMPOUNDED PRESCRIPTION Diabetic shoes No current facility-administered medications for this visit. Allergies: Apple Flavoring [Flavoring Agent] ROS: General (negative for fatigue, malaise, weight loss/gain) HEENT (negative for headache, earache, recent vision changes, sinus pain, sore throat) Respiratory (no recent shortness of breath, hemoptysis) CV (negative for chest tightness, palpitations) Musculoskeletal (see HPI) Psych (no depression, anxiety) Giana Jaramillo MD documented in this encounter [facility] 11-16-2022 Note HNO ID: [id number] Author: Liz Gupta Service: ? Author Type: Physician Type: Progress Notes Filed: 11/16/2022 8:31 AM Note Text: Subjective: This 67 year old female presents to clinic for diabetic foot check. Patient admits to being diabetic for multiple years now. Patient -B/T/N in feet at this time. Patient -pain in legs when walking. No other pedal complaints at this time. No change in medications or medical history since last visit. PAIN EVALUATION No data found in the last 1 encounters. Hemoglobin A1C (%) Date Value 07/08/2019 9.7 05/26/2016 9.4 05/20/2015 6.1 02/18/2015 6.6 11/14/2014 7.1 Hemoglobin A1C (POCT) (%) Date Value 10/01/2020 9.0 05/28/2020 7.8 12/30/2019 10.1 PCP: Armando Stephens CNP PAST MEDICAL HISTORY Diagnosis Date Anxiety Diabetic neuropathy (HCC) DM (diabetes mellitus) ([facility]) type 2 Essential hypertension 05/28/2020 Neuropathy STEPHANIE (obstructive sleep apnea) AHI 37.9 05/05/2014 Osteopenia Pseudophakia of right eye 07/16/2020 Rosacea Sleep apnea Current Outpatient Medications Medication Sig oxybutynin ER (DITROPAN XL) 10 mg 24 hr tablet Take 1 tablet by mouth once daily. propylene glycol (SYSTANE BALANCE OPHTHALMIC) Use in eyes. dulaglutide (TRULICITY) 0.75 mg/0.5 mL pen injector Inject 0.75 mg subcutaneously one time a week. ascorbic acid, vitamin C, (VITAMIN C) 500 mg tablet Take 500 mg by mouth once daily. acetaminophen 650 mg CR tablet Take 1,300 mg by mouth every 8 hours as needed for pain. SITagliptin-metFORMIN (JANUMET) 50-1,000 mg per tablet Take 1 tablet by mouth twice daily with meals. pioglitazone (ACTOS) 30 mg tablet Take 1 tablet by mouth once daily. lisinopril 2.5 mg tablet Take 1 tablet by mouth once daily. glimepiride (AMARYL) 4 mg tablet Take 2 tablets by mouth once daily atorvastatin (LIPITOR) 10 mg tablet Take 10 mg by mouth once daily. COMPOUNDED PRESCRIPTION Diabetic shoes CPAP Pressure Change CPAP to 9 cmH20. Dx STEPHANIE multivitamin,rm-muxq-iobjqijl (COMPLETE MULTIVITAMIN) tab Take 1 tablet by mouth once daily. moxifloxacin (VIGAMOX) 0.5 % ophthalmic solution Use 1 Drop in the left eye four times daily. Start 2 days before surgery, then continue afterwards. (Patient not taking: Reported on 11/16/2022) prednisoLONE acetate (PRED FORTE, ECONOPRED PLUS) 1 % ophthalmic suspension Use 1 Drop in the left eye four times daily. Start day of surgery. (Patient not taking: Reported on 11/16/2022) keTORolac (ACULAR) 0.5 % ophthalmic solution Use 1 Drop in the left eye four times daily. Start 2 days before surgery, then continue afterwards. (Patient not taking: Reported on 11/16/2022) meloxicam (MOBIC) 15 mg tablet Take 1 tablet by mouth once daily. (Patient not taking: Reported on 11/16/2022) Zinc 50 mg tab Take 50 mg by mouth once daily. (Patient not taking: Reported on 11/16/2022) folic acid 1 mg tablet Take 1 mg by mouth once daily. (Patient not taking: Reported on 11/16/2022) Cholecalciferol, Vitamin D3, 25 mcg (1,000 unit) cap Take 1,000 Units by mouth once daily. Take 5 capsules per day (Patient not taking: No sig reported) No current facility-administered medications for this visit. ALLERGIES Allergen Reactions Apple Flavoring [Fl* Swelling, Itching, Anaphylaxis Snapple drinks PAST SURGICAL HISTORY Procedure Laterality Date CATARACT EXTRACTION W/ INTRAOCULAR LENS IMPLANT HX Right 07/16/2020 COLONOSCOPY FLX DX W/COLLJ SPEC WHEN PFRMD 07/19/12 Colonoscopy repeat 5 years COLONOSCOPY FLX DX W/COLLJ SPEC WHEN PFRMD 07/19/12 Colonoscopy COLONOSCOPY FLX DX W/COLLJ SPEC WHEN PFRMD 01/08/2019 Colonoscopy NEUROPLASTY AND/TRANSPOS MEDIAN NRV CARPAL TUNNE 2004 Carpal tunnel decomp bilateral PAST SURGICAL HISTORY OF c-sections x 5 PAST SURGICAL HISTORY OF 2003 Trigger finger release left ring finger and right middle and ring fingers PAST SURGICAL HISTORY OF 2011 Trigger finger release FAMILY HISTORY Problem Relation Age of Onset Diabetes Father Coronary Artery Disease Father other (Other) Father brain tumor Diabetes Mother other (Dementia) Mother Kidney Disease Brother No Ocular Disease No Family History Social History Tobacco Use Smoking status: Never Smokeless tobacco: Never Vaping Use Vaping Use: Never used Substance Use Topics Alcohol use: No Drug use: No REVIEW OF SYSTEMS GENERAL: Negative for Malaise, significant weight loss, fever RESPIRATORY: Negative for cough, wheezing and shortness of breath CARDIOVASCULAR: Negative for chest pain, leg swelling and palpitations GI: Negative for abdominal discomfort, blood in stools or black stools and change in bowel habits : Negative for dysuria, frequency and incontinence MUSCULOSKELETAL: Negative for joint pain or swelling, back pain, and muscle pain. SKIN: Negative for lesions, rash, and itching. HEMATOLOGY/LYMPHOLOGY Negative for prolonged bleeding, bruising easily, and swollen node (more content not included)... [facility] 11-16-2022 Note HNO ID: [id number] Author: Yola Murcia RN Service: ? Author Type: Registered Nurse Type: Progress Notes Filed: 11/16/2022 8:31 AM Note Text: Patient presents with: Left Foot - Established Patient, Follow Up, Diabetic Foot Check Right Foot - Diabetic Foot Check, Established Patient, Follow Up Patient presents for Diabetic foot check. States that she would also like an order for new orthotics and her nails trimmed. Denies any pain or new problems with her feet at this time. [facility] 03-23-2022 Miscellaneous Notes Patient called back saying she is going with another facility for her eye surgery. No other info was given. Case was cancelled out by Alfred Lott. documented in this encounter [facility] 03-18-2022 Miscellaneous Notes Left msg for patient to cb to sched sx w Dr. Vidales . documented in this encounter [facility] 03-17-2022 Miscellaneous Notes Called patient to sched sx w Dr. Vidales . documented in this encounter [facility] 03-16-2022 Miscellaneous Notes Returned patients call and answered her questions about cataract surgery. Will defer to Dr. Vidales at patient's request. Amna Cardoza RN March 16, 2022 4:11 PM The patient has some additional questions about the cataract surgery itself. In particular of having a specific type of lens with an astigmatism the benefits versus the cons. The patient would like to speak with Dr. Vidales directly before she calls back surgery scheduling to schedule. Ms. Zacarias can be reached at [phone]. documented in this encounter [facility] 03-10-2022 Instructions Emily Vidales MD - 03/10/2022 2:25 PM EDT Pre-Op Instructions for patients of Dr. Emily Vidales 2 days prior to surgery start: Moxifloxacin- use one drop four times each day in operative eye Ketorolac - use one drop four times each day in operative eye You may use the drops in any order, but close your eye for 5 minutes after each drop. Continue to use any previous eye drops unless instructed otherwise. Day of Surgery: Prednisolone acetate - Do not use until after surgery. You will be given instructions for use. Do not eat or drink anything 8 hours prior to procedure time. Take all of your morning medication with only enough water to swallow them unless instructed otherwise by Dr. Vidales or your Primary Care physician. Get one drop of Moxifloxacin, and Ketorolac in the operative eye prior to arriving at the surgery center. After your surgery: You may remove your shield once you are home, but you must place it back over your eye in the evening and anytime before you go to sleep. No heavy lifting or bending from the waist. Limit your activity. Avoid bumping or rubbing the operative eye. You will be given instructions in the surgery center about starting the three eyedrops after surgery. Call the office if you have any questions or concerns at , option 1. If the call is after business hours you will automatically connect with the answering service and they will contact your doctor as needed. documented in this encounter [facility] 09-15-2022 History of Presen t illness Narrative (E11.9, Z79.4) Type 2 diabetes mellitus without complication, with long-term current use of insulin ([facility]) (primary encounter diagnosis) Comment: Discussed no retinopathy both eyes. Plan: Continue blood sugar control and monitor with primary care physician. (H40.003) Glaucoma suspect of both eyes Comment: Discussed asymmetry of C/D both eyes. Plan: Stable. OCT nerve both eyes done today and reviewed with patient ALBINA. Recommend monitor intraocular pressure and C/D both eyes. (H25.812) Combined forms of age-related cataract of left eye Comment: Discussed visually significant cataract left eye. Plan: Options reviewed including observation vs Cataract extraction/IOL both eyes. Patient opts for Cataract extraction/intraocular lens left eye. Cataract Presurgical Documentation Cataract: Left eye (OS) Current Visual Acuity Right Eye Distance CC 20/20 Left Eye Distance CC 20/25 Best Corrected Vision Right Eye 20/20 Best Corrected Vision Left Eye 20/25 Glare Testing: Left Eye Low 20/25 Left Eye Medium 20/40 Left Eye High 20/60 Visual Function: Jessica Zacarias states that the decline in vision from the cataract impedes her abilities as listed in the HPI, as well as other activities of daily living. Jessica Zacarias has confirmed that she is no longer able to function adequately on a day-to-day basis because of her current visual condition. Further, it is my medical opinion that the cataract is the primary cause, or at least a significantly contributory cause of her visual dysfunction. With uncomplicated cataract surgery and lens implantation, it is my expectation that her visual function and quality of life will improve, significantly. The risks, benefits, alternatives, personnel and complications of cataract surgery with lens implantation were discussed with Jessica Zacarias in detail. she appeared to understand and asked that I proceed with plans for surgery. (H26.491) Right posterior capsular opacification Comment: Discussed findings on exam. Plan: Monitor. Consider future YAG if change in vision. (H04.123) Dry eye syndrome of bilateral lacrimal glands Comment: Discussed findings on exam. Plan: Option for artificial tears as needed. (H43.811) Posterior vitreous detachment of right eye Comment: Discussed findings on exam. Plan: Signs and symptoms of worsening floater reviewed. Patient instructed to call if symptoms change or worsen. (H52.4) Presbyopia Comment: Discussed refractive error. Plan: Manifest refraction dispensed. (H02.831, H02.834) Dermatochalasis of both upper eyelids Comment: Discussed findings on exam. Plan: Reviewed possible worsening post Cataract extraction/intraocular lens left eye. Follow up for Cataract extraction/intraocular lens left eye Target: [place] Possible trypan blue. Possible Maluygin ring. Patient is interested in toric lens left eye; possible Femto. Patient will [facility] to [facility]. I have confirmed and edited as necessary the relevant ophthalmic history, ROS, and the neuro exam findings as obtained by others. I have seen and examined this patient. I have discussed the case and the management of this patient's care with the Resident/Fellow, if applicable. I also have reviewed and agree with the assessment and plan as stated above and agree with all of its relevant components. Emily Vidales MD March 10, 2022 2:18 PM documented in this encounter [facility] 12-20-2021 History of Presen t illness Narrative Associated Order(s): Large Joint Arthro/Inj: R subacromial bursa Giana Jaramillo MD Department of Orthopaedics Orthopaedics [address] [facility] [address] Dept: [phone] Dept December 20, 2021 CHIEF COMPLAINT: Follow Up of the Right Shoulder and 11 weeks 4 days post visait right shoulder pain with injecti (Wants injection) [facility] ROOMING INTAKE FLOWSHEET DATA Risk Screening Do you have concerns about personal safety or safety in the home?: No Pain Pain Level: 9 Pain Location: Shoulder-Right Description: Aching, Sharp Duration Amount of Time: 3 Duration Units: Weeks Frequency: Continuous Intervention/Comfort measure: Medication Comments: Tylenol arthritis strength 1300 mg and lidocaine patch/lotion with some relief ASSESSMENT: M75.41 Impingement syndrome of right shoulder (primary encounter diagnosis) M25.511, G89.29 Chronic right shoulder pain PLAN: Right shoulder, subacromial injection. Ms. Jessica Zacarias was advised as to contrast therapies and/or to take analgesics/anti-inflammatories as needed and all contraindications were reviewed. OBJECTIVE: Ms. Jessica Zacarias is a pleasant 66 year old in no apparent distress. Gen:There were no vitals taken for this visit. nl development, non obese, no deformities ENT: Normocephalic, normal hearing, moist mucosa CV: Pulses:Radial= 2+ and symmetric, capillary refill < 2 secs, no peripheral edema/varicosities Skin: no rash, bruising or lesions. Good turgor. Psych: cooperative and appropriate, alert and oriented x 3, good mood and affect. Musculoskeletal: Persistent impingement symptoms. Large Joint Arthro/Inj: R subacromial bursa Informed Consent Consent Obtained: Verbal Dolph Protocol A moment to CARE was completed. SIGN IN Sign in communication not applicable due to emergent procedure. Personnel directly involved with the procedure wore the appropriate PPE. Special Equipment: N/A Patient/Surrogate Stated/Verified: Patient name, Date of , Relevant allergies and Intended procedure TIME OUT Intended patient and procedure match the source document(s). Consent documented and matches the intended procedure. Relevant labs, photos, and/or imaging studies have been reviewed. Correct side/site marked and visible. Medications required for procedure verified. No fire risk assessment and interventions applicable. No implant(s) inserted. 12/20/2021 3:09 PM The procedure site was prepped in the usual sterile fashion. Site: R subacromial bursa Medications: 6 mg betamethasone acetate-betamethasone sodium phosphate 6 mg/mL Anesthetics: 4 mL lidocaine (PF) 10 mg/mL (1 %) Outcome: Tolerated well, no immediate complications Post-injection instructions were reviewed with the patient and the patient voiced understanding of these instructions. SIGN OUT All instruments, equipment, possible retained foreign bodies accounted for. Post-procedure follow-up management communicated and Plan of Care Visit completed when applicable Imaging: deferred Supporting Subjective Information Below: Past Surgical History: PAST SURGICAL HISTORY Procedure Laterality Date CATARACT EXTRACTION W/ INTRAOCULAR LENS IMPLANT HX Right 07/16/2020 COLONOSCOPY FLX DX W/COLLJ SPEC WHEN PFRMD 07/19/12 Colonoscopy repeat 5 years COLONOSCOPY FLX DX W/COLLJ SPEC WHEN PFRMD 07/19/12 Colonoscopy COLONOSCOPY FLX DX W/COLLJ SPEC WHEN PFRMD 01/08/2019 Colonoscopy NEUROPLASTY &/TRANSPOS MEDIAN NRV CARPAL TUNNE 2004 Carpal tunnel decomp bilateral PAST SURGICAL HISTORY OF c-sections x 5 PAST SURGICAL HISTORY OF 2003 Trigger finger release left ring finger and right middle and ring fingers PAST SURGICAL HISTORY OF 2011 Trigger finger release Medications: Current Outpatient Medications Medication Sig dulaglutide (TRULICITY) 0.75 mg/0.5 mL pen injector Inject 0.75 mg subcutaneously one time a week. ascorbic acid, vitamin C, (VITAMIN C) 500 mg tablet Take 500 mg by mouth once daily. Zinc 50 mg tab Take 50 mg by mouth once daily. folic acid 1 mg tablet Take 1 mg by mouth once daily. acetaminophen (TYLENOL ARTHRITIS PAIN) 650 mg CR tablet Take 1,300 mg by mouth every 8 hours as needed for pain. SITagliptin-metFORMIN (JANUMET) 50-1,000 mg per tablet Take 1 tablet by mouth twice daily with meals. pioglitazone (ACTOS) 30 mg tablet Take 1 tablet by mouth once daily. lisinopril 2.5 mg tablet Take 1 tablet by mouth once daily. glimepiride (AMARYL) 4 mg tablet Take 2 tablets by mouth once daily atorvastatin (LIPITOR) 10 mg tablet Take 10 mg by mouth once daily. COMPOUNDED PRESCRIPTION Diabetic shoes CPAP Pressure Change CPAP to 9 cmH20. Dx STEPHANIE multivitamin,ig-xlwr-tyotuawl (COMPLETE MULTIVITAMIN) tab Take 1 tablet by mouth once daily. meloxicam (MOBIC) 15 mg tablet Take 1 tablet by mouth once daily. (Patient not taking: Reported on 12/20/2021 ) Cholecalciferol, Vitamin D3, (VITAMIN D) 25 mcg (1,000 unit) cap Take 1,000 Units by mouth once daily. Take 5 capsules per day (Patient not taking: Reported on 08/30/2021 ) No current facility-administered medications for this visit. Allergies: Apple Flavoring [Flavoring Agent] ROS: General (negative for fatigue, malaise, weight loss/gain) HEENT (negative for headache, earache, recent vision changes, sinus pain, sore throat) Respiratory (no recent shortness of breath, hemoptysis) CV (negative for chest tightness, palpitations) Musculoskeletal (see HPI) Psych (no depression, anxiety) Giana Jaramillo MD documented in this encounter [facility] 09-30-2021 History of Presen t illness Narrative Associated Order(s): Large Joint Arthro/Inj: R subacromial bursa rivera Jaramillo MD Department of Orthopaedics Orthopaedics [address] [place] [address] Dept: [phone] Dept September 30, 2021 CHIEF COMPLAINT: New Problem and right shoulder pain HPI She describes discomfort in the right shoulder with certain activities, vacuuming, a little bit of shoveling later in the winter season. She feels some clicking and mechanical symptoms on occasion as well. Difficulty sleeping at times. [facility] ROOMING INTAKE FLOWSHEET DATA Risk Screening Do you have concerns about personal safety or safety in the home?: No Pain Pain Level: 4 Pain Location: Shoulder-Right Description: Aching Duration Amount of Time: 2 Duration Units: Months Frequency: Intermittent Intervention/Comfort measure: Relaxation, Medication Comments: Lidocaine patch or Tylenol Arthritis ASSESSMENT: M25.511, G89.29 Chronic right shoulder pain (primary encounter diagnosis) M75.41 Impingement syndrome of right shoulder PLAN: We discussed different treatment options. She would like to try a different anti-inflammatory as well as a cortisone injection today. Ms. Jessica Zacarias was advised as to contrast therapies and/or to take analgesics/anti-inflammatories as needed and all contraindications were reviewed. OBJECTIVE: Ms. Jessica Zacarisa is a pleasant 66 year old in no apparent distress. Gen:There were no vitals taken for this visit. nl development, non obese, no deformities ENT: Normocephalic, normal hearing, moist mucosa CV: Pulses:Radial= 2+ and symmetric, capillary refill < 2 secs, no peripheral edema/varicosities Skin: no rash, bruising or lesions. Good turgor. Psych: cooperative and appropriate, alert and oriented x 3, good mood and affect. Musculoskeletal: Supple range of motion of the cervical spine without pain. Spurling signs are negative. No atrophy of the deltoid and shoulder musculature. Right shoulder is nontender to palpation over the SC joint, clavicle and AC joint. No tenderness to palpation over the posterior shoulder, positive tenderness to palpation over the anterior lateral corner of the shoulder and greater tuberosity. Mild discomfort at the bicipital groove and coracoid. Active range of motion is 160 degrees of forward elevation, 50 degrees external rotation, and internal rotation to the low thoracic. Passive range of motion is symmetrical, limited by pain, respectively. No laxity with anterior and posterior stress. Positive Neer and positive Maradiaga impingement signs. 4+/5 strength with supraspinatus, infraspinatus and subscapularis. Sensation is intact in the axillary, radial, median and ulnar nerve distribution Large Joint Arthro/Inj: R subacromial bursa Informed Consent Consent Obtained: Verbal Dolph Protocol A moment to CARE was completed. SIGN IN Sign in communication not applicable due to emergent procedure. Personnel directly involved with the procedure wore the appropriate PPE. Special Equipment: N/A Patient/Surrogate Stated/Verified: Patient name, Date of , Relevant allergies and Intended procedure TIME OUT Intended patient and procedure match the source document(s). Consent documented and matches the intended procedure. Relevant labs, photos, and/or imaging studies have been reviewed. No relevant labs, photos, and/or imaging studies were applicable for review. Correct side/site marked and visible. Medications required for procedure verified. No fire risk assessment and interventions applicable. No implant(s) inserted. 09/30/2021 8:55 AM The procedure site was prepped in the usual sterile fashion. Site: R subacromial bursa Medications: 6 mg betamethasone acetate-betamethasone sodium phosphate 6 mg/mL Anesthetics: 4 mL lidocaine (PF) 10 mg/mL (1 %) Outcome: Tolerated well, no immediate complications Post-injection instructions were reviewed with the patient and the patient voiced understanding of these instructions. SIGN OUT All instruments, equipment, possible retained foreign bodies accounted for. Post-procedure follow-up management communicated and Plan of Care Visit completed when applicable Imagin views of the right shoulder from an outside facility show a little bit of spurring around the lateral greater tuberosity but no other signs of arthritis other than some mild acromioclavicular. Supporting Subjective Information Below: Past Surgical History: PAST SURGICAL HISTORY Procedure Laterality Date CATARACT EXTRACTION W/ INTRAOCULAR LENS IMPLANT HX Right 07/16/2020 COLONOSCOPY FLX DX W/COLLJ SPEC WHEN PFRMD 07/19/12 Colonoscopy repeat 5 years COLONOSCOPY FLX DX W/COLLJ SPEC WHEN PFRMD 07/19/12 Colonoscopy COLONOSCOPY FLX DX W/COLLJ SPEC WHEN PFRMD 01/08/2019 Colonoscopy NEUROPLASTY &/TRANSPOS MEDIAN NRV CARPAL TUNNE 2004 Carpal tunnel decomp bilateral PAST SURGICAL HISTORY OF c-sections x 5 PAST SURGICAL HISTORY OF 2003 Trigger finger release left ring finger and right middle and ring fingers PAST SURGICAL HISTORY OF 2011 Trigger finger release Medications: Current Outpatient Medications Medication Sig ascorbic acid, vitamin C, (VITAMIN C) 500 mg tablet Take 500 mg by mouth once daily. Zinc 50 mg tab Take 50 mg by mouth once daily. folic acid 1 mg tablet Take 1 mg by mouth once daily. acetaminophen (TYLENOL ARTHRITIS PAIN) 650 mg CR tablet Take 1,300 mg by mouth every 8 hours as needed for pain. SITagliptin-metFORMIN (JANUMET) 50-1,000 mg per tablet Take 1 tablet by mouth twice daily with meals. pioglitazone (ACTOS) 30 mg tablet Take 1 tablet by mouth once daily. lisinopril 2.5 mg tablet Take 1 tablet by mouth once daily. glimepiride (AMARYL) 4 mg tablet Take 2 tablets by mouth once daily atorvastatin (LIPITOR) 10 mg tablet Take 10 mg by mouth once daily. COMPOUNDED PRESCRIPTION Diabetic shoes CPAP Pressure Change CPAP to 9 cmH20. Dx STEPHANIE multivitamin,ma-xwdx-lfapvdro (COMPLETE MULTIVITAMIN) tab Take 1 tablet by mouth once daily. ibuprofen-famotidine (DUEXIS) 800-26.6 mg tab Take 1 tablet by mouth daily at bedtime. Cholecalciferol, Vitamin D3, (VITAMIN D) 25 mcg (1,000 unit) cap Take 1,000 Units by mouth once daily. Take 5 capsules per day (Patient not taking: Reported on 08/30/2021 ) No current facility-administered medications for this visit. Allergies: Apple Flavoring [Flavoring Agent] ROS: General (negative for fatigue, malaise, weight loss/gain) HEENT (negative for headache, earache, recent vision changes, sinus pain, sore throat) Respiratory (no recent shortness of breath, hemoptysis) CV (negative for chest tightness, palpitations) Musculoskeletal (see HPI) Psych (no depression, anxiety) Giana Jaramillo MD documented in this encounter [facility] 01-14-2021 Note ADDITIONAL PROCEDURES PRESENT Specimen #: [id number] Submitting Physician: ARMANDO STEPHENS CNP SPECIMEN SUBMITTED A: CERVICAL, SCREENING, FLUID ___ FINAL DIAGNOSIS A. CERVICAL, SCREENING, FLUID Satisfactory for interpretation. Negative for intraepithelial lesion or malignancy. Atrophic specimen. Acute inflammation. This specimen has been analyzed by the ThinPrep Imaging System, an automated imaging and review system, which assists the laboratory in evaluating cells on ThinPrep Pap tests. Following automated imaging, selected mantilla from every slide are reviewed by a circuit court magistrate. TRINA Flaherty(ASCP) (Electronic Signature) ___ ADDITIONAL PROCEDURE(S) HUMAN PAPILLOMA VIRUS Date Ordered: 01/15/2021 Date Reported: 01/25/2021 Procedure Results and Interpretation Negative for HPV DNA high risk type 16 by PCR. Negative for HPV DNA high risk type 18 by PCR. Negative for one or more of the following HPV DNA high risk types: 31,33,35,39,45,51,52,56,58,59,66 ,68 by PCR. This test was developed and its performance characteristics determined by [facility] [place] ([facility]). It has not been cleared or approved by the FDA. [facility] is regulated under CLIA as qualified to perform high-complexity testing. This test is used for clinical purposes. It should not be regarded as investigational or for research. Procedure Pathologist: Kelly Ruiz M.D./NORY Electronic Signature CLINICAL DATA HPV TESTING: Yes, automatic HPV patients over 30 Date of Last Menstrual Period: UNKNOWN STAINS A: CERVICAL, SCREENING, FLUID THIN PREP PACK PRESS OPERATOR Mookie Mims M.D., Instrumentation Engineering Technician Patient ID #: [id number] Date of Report: 01/18/2021 Date of Procedure: 01/14/2021 Date of Receipt: 01/15/2021 Submitted by: ARMANDO STEPHENS CNP Location: Diagnostic interpretation performed at [facility], [address] [place] [address]. CLIA Number: [id number] The Pap Smear is a screening test for cervical cancer. False negative results occur with all screening tests, emphasizing the need for rescreening at recommended intervals, and clinical correlation. 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 07/16/2020 07/16/2020 Preventive measure 11/27/2013 01/13/2015 Overview: Need to establish if she is a diabetic, she will need appropriate preventive care with that, she also needs a cholesterol and mammogram to be uptodate with her preventive profile Last Assessment & Plan: Need to establish if she is a diabetic, she will need appropriate preventive care with that, she also needs a cholesterol and mammogram to be uptodate with her preventive profile documented as of this encounter (statuses as of 12/29/2021) [facility] History of Past illness Narrative* Problem Noted Date Resolved Date Posterior subcapsular polar 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 07/16/2020 07/16/2020 Preventive measure 11/27/2013 01/13/2015 Overview: Need to establish if she is a diabetic, she will need appropriate preventive care with that, she also needs a cholesterol and mammogram to be uptodate with her preventive profile Last Assessment & Plan: Need to establish if she is a diabetic, she will need appropriate preventive care with that, she also needs a cholesterol and mammogram to be uptodate with her preventive profile documented as of this encounter (statuses as of 01/10/2022) [facility] History of Past illness Narrative* Problem Noted Date Resolved Date Posterior subcapsular polar 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 07/16/2020 07/16/2020 Preventive measure 11/27/2013 01/13/2015 Overview: Need to establish if she is a diabetic, she will need appropriate preventive care with that, she also needs a cholesterol and mammogram to be uptodate with her preventive profile Last Assessment & Plan: Need to establish if she is a diabetic, she will need appropriate preventive care with that, she also needs a cholesterol and mammogram to be uptodate with her preventive profile documented as of this encounter (statuses as of 03/10/2022) [facility] History of Past illness Narrative* Problem Noted Date Resolved Date Posterior subcapsular polar 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 07/16/2020 07/16/2020 Preventive measure 11/27/2013 01/13/2015 Overview: Need to establish if she is a diabetic, she will need appropriate preventive care with that, she also needs a cholesterol and mammogram to be uptodate with her preventive profile Last Assessment & Plan: Need to establish if she is a diabetic, she will need appropriate preventive care with that, she also needs a cholesterol and mammogram to be uptodate with her preventive profile documented as of this encounter (statuses as of 03/16/2022) [facility] History of Past illness Narrative* Problem Noted Date Resolved Date Posterior subcapsular polar 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 07/16/2020 07/16/2020 Preventive measure 11/27/2013 01/13/2015 Overview: Need to establish if she is a diabetic, she will need appropriate preventive care with that, she also needs a cholesterol and mammogram to be uptodate with her preventive profile Last Assessment & Plan: Need to establish if she is a diabetic, she will need appropriate preventive care with that, she also needs a cholesterol and mammogram to be uptodate with her preventive profile documented as of this encounter (statuses as of 03/17/2022) [facility] History of Past illness Narrative* Problem Noted Date Resolved Date Posterior subcapsular polar 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 07/16/2020 07/16/2020 Preventive measure 11/27/2013 01/13/2015 Overview: Need to establish if she is a diabetic, she will need appropriate preventive care with that, she also needs a cholesterol and mammogram to be uptodate with her preventive profile Last Assessment & Plan: Need to establish if she is a diabetic, she will need appropriate preventive care with that, she also needs a cholesterol and mammogram to be uptodate with her preventive profile documented as of this encounter (statuses as of 03/18/2022) [facility] History of Past illness Narrative* Problem Noted Date Resolved Date Posterior subcapsular polar 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 07/16/2020 07/16/2020 Preventive measure 11/27/2013 01/13/2015 Overview: Need to establish if she is a diabetic, she will need appropriate preventive care with that, she also needs a cholesterol and mammogram to be uptodate with her preventive profile Last Assessment & Plan: Need to establish if she is a diabetic, she will need appropriate preventive care with that, she also needs a cholesterol and mammogram to be uptodate with her preventive profile documented as of this encounter (statuses as of 03/23/2022) [facility] History of Past illness Narrative* Problem Noted Date Diagnosed Date Resolved Date Posterior subcapsular polar 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 07/16/2020 07/16/2020 Preventive measure 11/27/2013 5 Overview: Need to establish if she is a diabetic, she will need appropriate preventive care with that, she also needs a cholesterol and mammogram to be uptodate with her preventive profile Last Assessment & Plan: Need to establish if she is a diabetic, she will need appropriate preventive care with that, she also needs a cholesterol and mammogram to be uptodate with her preventive profile documented as of this encounter (statuses as of 01/02/2023) [facility] History of Past illness Narrative* Problem Noted Date Diagnosed Date Resolved Date Posterior subcapsular polar 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 07/16/2020 07/16/2020 Preventive measure 11/27/2013 5 Overview: Need to establish if she is a diabetic, she will need appropriate preventive care with that, she also needs a cholesterol and mammogram to be uptodate with her preventive profile Last Assessment & Plan: Need to establish if she is a diabetic, she will need appropriate preventive care with that, she also needs a cholesterol and mammogram to be uptodate with her preventive profile documented as of this encounter (statuses as of 02/07/2023) [facility] History of Past illness Narrative* Problem Noted Date Diagnosed Date Resolved Date Posterior subcapsular polar 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 07/16/2020 07/16/2020 Preventive measure 11/27/2013 5 Overview: Need to establish if she is a diabetic, she will need appropriate preventive care with that, she also needs a cholesterol and mammogram to be uptodate with her preventive profile Last Assessment & Plan: Need to establish if she is a diabetic, she will need appropriate preventive care with that, she also needs a cholesterol and mammogram to be uptodate with her preventive profile documented as of this encounter (statuses as of 04/30/2023) [facility] + Plan note No data available for this section [facility] Evaluation note* Diagnosis Chronic right shoulder pain- Primary Pain in joint, shoulder region Impingement syndrome of right shoulder Other affections of shoulder region, not elsewhere classified documented in this encounter [facility] note* Diagnosis Pain in both knees, unspecified chronicity- Primary documented in this encounter [facility] note* Diagnosis Impingement syndrome of right shoulder- Primary Other affections of shoulder region, not elsewhere classified Chronic right shoulder pain Pain in joint, shoulder region documented in this encounter [facility] note* Diagnosis Type 2 diabetes mellitus without complication, with long-term current use of insulin (HCC)- Primary Glaucoma suspect of both eyes Preglaucoma, unspecified Combined forms of age-related cataract of left eye Other and combined forms of senile cataract Right posterior capsular opacification After-cataract, unspecified Dry eye syndrome of bilateral lacrimal glands Tear film insufficiency, unspecified Posterior vitreous detachment of right eye Vitreous degeneration Presbyopia Dermatochalasis of both upper eyelids documented in this encounter [facility] note* Diagnosis Pain in both knees, unspecified chronicity- Primary documented in this encounter [facility] note* Diagnosis Chronic pain of both knees- Primary Primary osteoarthritis of both knees Primary localized osteoarthrosis, lower leg documented in this encounter [facility] note* Diagnosis Pain in both knees, unspecified chronicity [facility] No data available for this section [facility] Progress note No data available for this section [facility] Reason for referral (narrative)* Diagnostic Procedure Only (Routine) - Pending Review Specialty Diagnoses / Procedures Referred By Jalil t Referred To Contact XR IMAGING Diagnoses Pain in both knees, unspecified chronicity Procedures XR KNEE GENERAL 4V AP BOTH/PA BOTH/LAT/MERC BILATERAL RADIOLOGIC EXAM KNEE COMPLETE 4/MORE VIEWS Giana Jaramillo MD [address] [place] [address] Xr Imaging Referral ID Status Reason Start Date Expiration Date Visits Requested Visits Authorized [id number] Pending Review Auto-Generat ed Referral 12/29/2021 01/28/2023 1 1 T [facility] for referral (narrative)* Diagnostic Procedure Only (Routine) - Pending Review Specialty Diagnoses / Procedures Referred By Contac t Referred To Contact XR IMAGING Diagnoses Pain in both knees, unspecified chronicity Procedures XR KNEE GENERAL 4V AP BOTH/PA BOTH/LAT/MERC BILATERAL RADIOLOGIC EXAM KNEE COMPLETE 4/MORE VIEWS Giana Jaramillo MD [address] [place] [address] Xr Imaging Referral ID Status Reason Start Date Expiration Date Visits Requested Visits Authorized [id number] Pending Review Auto-Generat ed Referral 01/02/2023 02/01/2024 1 1 T [facility] for referral (narrative)* Diagnostic Procedure Only (Routine) - Closed Specialty Diagnoses / Procedures Referred By Jalil t Referred To Contact XR IMAGING Diagnoses Pain in both knees, unspecified chronicity Procedures XR KNEE GENERAL 4V AP BOTH/PA BOTH/LAT/MERC BILATERAL RADIOLOGIC EXAM KNEE COMPLETE 4/MORE VIEWS Giana Jaramillo MD [address] [place] [address] [place] [id number] Referral ID Status Reason Start Date Expiration Date V isits Requested Visits Authorized [id number] Closed Auto-Generate d Referral 01/02/2023 02/01/2024 1 1 [facility] for visit Narrative* Diagnostic Procedure Only (Routine) - Closed Specialty Diagnoses / Procedures Referred By Contac t Referred To Contact XR IMAGING Diagnoses Pain in both knees, unspecified chronicity Procedures XR KNEE GENERAL 4V AP BOTH/PA BOTH/LAT/MERC BILATERAL RADIOLOGIC EXAM KNEE COMPLETE 4/MORE VIEWS Giana Jaramillo MD [address] [place] [address] [place] [id number] Referral ID Status Reason Start Date Expiration Date V isits Requested Visits Authorized [id number] Closed Auto-Generate d Referral 01/02/2023 02/01/2024 1 1 [facility] Summary Purpose Family History No Family History Records FoundNo Family History Records FoundNo Family History Records Found No data available for this section No Family History Records FoundNo Family History Records Found Advance Directives No Advanced Directives Records FoundDocuments on File Type Date Recorded Patient Sheep Clipper Expl anation Advance Directive(s) 07/16/2020 8:26 AM Advance Directive(s) 03/25/2019 12:31 PM Advance Directive(s) 03/12/2019 2:57 PM Advance Directive(s) 01/08/2019 9:19 AM Documents on File Type Date Recorded Patient Sheep Clipper Expl anation Advance Directive(s) 07/16/2020 8:26 AM Advance Directive(s) 03/25/2019 12:31 PM Advance Directive(s) 03/12/2019 2:57 PM Advance Directive(s) 01/08/2019 9:19 AM Medications Administered Section Inactive Administered Medications - up to 3 most recent administrations Medication Order MAR Action Action Date Dose Rate Site betamethasone acetate-betamethasone sodium phosphate 6 mg injection (CELESTONE) 6 mg, Injection - FOR ORTHO USE ONLY, ONE TIME INJECTION, 1 dose, Starting on Ariane 09/30/21 at 0855, Until Ariane 09/30/21 at 0855 Given 09/30/2021 8:55 AM EDT 6 mg lidocaine (PF) 10 mg/mL (1 %) 4 mL injection (XYLOCAINE) 4 mL, Injection - FOR ORTHO USE ONLY, ONE TIME INJECTION, 1 dose, Starting on Ariane 09/30/21 at 0855, Until Ariane 09/30/21 at 0855 Given 09/30/2021 8:55 AM EDT 4 mL Inactive Administered Medications - up to 3 most recent administrations Medication Order MAR Action Action Date Dose Rate Site betamethasone acetate-betamethasone sodium phosphate 6 mg injection (CELESTONE) 6 mg, Injection - FOR ORTHO USE ONLY, ONE TIME INJECTION, 1 dose, Starting on 12/20/21 at 1509, Until 12/20/21 at 1509 Given 12/20/2021 3:09 PM EDT 6 mg lidocaine (PF) 10 mg/mL (1 %) 4 mL injection (XYLOCAINE) 4 mL, Injection - FOR ORTHO USE ONLY, ONE TIME INJECTION, 1 dose, Starting on Mon12/20/21 at 1509, Until Mon12/20/21 at 1509 Given 12/20/2021 3:09 PM EDT 4 mL Active Administered Medications - up to 3 most recent administrations Medication Order MAR Action Action Date Dose Rate Site fluorescein-benoxinate 0.25-0.4 % 1 Drop (FLURESS) 1 Drop, BOTH EYES, DIRECTED, Starting on Ariane 03/10/22 at 1255, Until Mon03/11/22 at 0054, Administer for applanation tonometry. In the event of a Fluress shortage, administer Kortney-Fluor 1 drop into both eyes as directed for applanation tonometry, [facility] MED ORDERS Given 03/10/2022 1:02 PM EDT 1 Drop PHENYLephrine 2.5 % 1 Drop (AK-DILATE, DAVE-SYNEPHRINE) 1 Drop, BOTH EYES, DIRECTED, Starting on Ariane 03/10/22 at 1255, Until Mon03/11/22 at 0054, Administer for dilation PROTECT FROM LIGHT, [facility] CLINIC MED ORDERS Given 03/10/2022 1:02 PM EDT 1 Drop proparacaine 0.5 % 1 Drop (ALCAINE) 1 Drop, BOTH EYES, DIRECTED, Starting on Ariane 03/10/22 at 1255, Until Mon03/11/22 at 0054, Administer for pneumo tonometry, tonopen tonometry, or pachymetry. In the event of a proparacaine shortage, administer tetracaine 0.5% ophthalmic drops 1 drop in the left eye as directed for pneumo tonometry, tonopen tonometry, or pachymetry, [facility]IC MED ORDERS Given 03/10/2022 1:02 PM EDT 1 Drop tropicamide 1 % 1 Drop (MYDRIACYL) 1 Drop, BOTH EYES, DIRECTED, Starting on Airane 03/10/22 at 1255, Until Mon03/11/22 at 0054, Administer for dilation, [facility] CLINIC MED ORDERS Given 03/10/2022 1:02 PM EDT 1 Drop Inactive Administered Medications - up to 3 most recent administrations Medication Order MAR Action Action Date Dose Rate Site betamethasone acetate-betamethasone sodium phosphate 6 mg injection (CELESTONE) 6 mg, Injection - FOR ORTHO USE ONLY, ONE TIME INJECTION, 1 dose, Starting on Mon01/02/23 at 1238, Until Mon01/02/23 at 1238 Given 01/02/2023 12:38 PM EDT 6 mg Knee, Left betamethasone acetate-betamethasone sodium phosphate 6 mg injection (CELESTONE) 6 mg, Injection - FOR ORTHO USE ONLY, ONE TIME INJECTION, 1 dose, Starting on Mon01/02/23 at 1238, Until Mon01/02/23 at 1238 Given 01/02/2023 12:38 PM EDT 6 mg Knee, Right lidocaine (PF) 10 mg/mL (1 %) 4 mL injection (XYLOCAINE) 4 mL, Injection - FOR ORTHO USE ONLY, ONE TIME INJECTION, 1 dose, Starting on Mon01/02/23 at 1238, Until Mon01/02/23 at 1238 Given 01/02/2023 12:38 PM EDT 4 mL Knee, Left lidocaine (PF) 10 mg/mL (1 %) 4 mL injection (XYLOCAINE) 4 mL, Injection - FOR ORTHO USE ONLY, ONE TIME INJECTION, 1 dose, Starting on Mon01/02/23 at 1238, Until Mon01/02/23 at 1238 Given 01/02/2023 12:38 PM EDT 4 mL Knee, Right Additional Source Comments INFORMATION SOURCE (unrecogn ized section and content) DATE CREATED AUTHOR AUTHOR'S ORGANIZ ATION 01/19/2021 [facility] DATE CREATED AUTHOR AUTHOR'S ORGANIZ ATION 01/26/2021 [facility] DATE CREATED AUTHOR AUTHOR'S ORGANIZ ATION 04/03/2023 [facility] DATE CREATED AUTHOR AUTHOR'S ORGANIZ ATION 06/29/2023 Replaced by [facility] ([place]) Source Comments (unrecognize d section and content) In the event this informatio n is protected by the Federal Confidentiality of Alcohol and Drug Abuse Patient Records regulations: The Federal rules restrict any use of the information to criminally investigate or prosecute any alcohol or drug abuse patient.[facility] the event this information is protected by the Federal Confidentiality of Alcohol and Drug Abuse Patient Records regulations: The Federal rules restrict any use of the information to criminally investigate or prosecute any alcohol or drug abuse patient.[facility] the event this information is protected by the Federal Confidentiality of Alcohol and Drug Abuse Patient Records regulations: The Federal rules restrict any use of the information to criminally investigate or prosecute any alcohol or drug abuse patient.[facility] the event this information is protected by the Federal Confidentiality of Alcohol and Drug Abuse Patient Records regulations: The Federal rules restrict any use of the information to criminally investigate or prosecute any alcohol or drug abuse patient.[facility] the event this information is protected by the Federal Confidentiality of Alcohol and Drug Abuse Patient Records regulations: The Federal rules restrict any use of the information to criminally investigate or prosecute any alcohol or drug abuse patient.[facility] the event this information is protected by the Federal Confidentiality of Alcohol and Drug Abuse Patient Records regulations: The Federal rules restrict any use of the information to criminally investigate or prosecute any alcohol or drug abuse patient.[facility] [facility] the event this information is protected by the Federal Confidentiality of Alcohol and Drug Abuse Patient Records regulations: The Federal rules restrict any use of the information to criminally investigate or prosecute any alcohol or drug abuse patient.[facility] the event this information is protected by the Federal Confidentiality of Alcohol and Drug Abuse Patient Records regulations: The Federal rules restrict any use of the information to criminally investigate or prosecute any alcohol or drug abuse patient.[facility] the event this information is protected by the Federal Confidentiality of Alcohol and Drug Abuse Patient Records regulations: The Federal rules restrict any use of the information to criminally investigate or prosecute any alcohol or drug abuse patient.[facility] Center[facility] the event this information is protected by the Federal Confidentiality of Alcohol and Drug Abuse Patient Records regulations: The Federal rules restrict any use of the information to criminally investigate or prosecute any alcohol or drug abuse patient.[facility] Center[facility] the event this information is protected by the Federal Confidentiality of Alcohol and Drug Abuse Patient Records regulations: The Federal rules restrict any use of the information to criminally investigate or prosecute any alcohol or drug abuse patient.[facility] Reason for Visit (unrecogniz ed section and content) Reason Comments 11 weeks 4 days post visait right should er pain with injecti Wants injection Follow Up Reason Comments Cataract Follow Up Phaco/IOL right eye Reason Comments Patient Question Reason Comments Schedule Surgery Reason Comments Appointment Reason Comments Follow Up Care Teams (unrecognized sec tion and content) Search Engine Optimization Analyst Relationship Specialty Start Date End Date Lisa Díaz PCP - General Family Practice 11/05/18 Lisa Díaz [address] [place] [address] Family Practice 02/24/20 Search Engine Optimization Analyst Relationship Specialty Start Date End Date Lisa Díaz PCP - General Family Practice 11/05/18 Lisa Díaz [address] [facility] [place] [address] Family Practice 02/24/20 Search Engine Optimization Analyst Relationship Specialty Start Date End Date Armando Stephens CNP [address] [facility] [place] [address] PCP - General Internal Medicine 03/10/22 Lisa Díaz [address] [facility] [place] [address] Family Practice 02/24/20 Search Engine Optimization Analyst Relationship Specialty Start Date End Date Armando Stephens CNP [address] [facility] [place] [address] PCP - General Internal Medicine 03/10/22 Lisa Díaz [address] [facility] [address] Family Medicine 02/24/20 Search Engine Optimization Analyst Relationship Specialty Start Date End Date Armando Stephens CNP [address] [facility] [place] [address] PCP - General Internal Medicine 03/10/22 Lisa Díaz [address] [facility] [address] Family Medicine 02/24/20 Search Engine Optimization Analyst Relationship Specialty Start Date End Date Armando Stephens CNP [address] [facility] [address] PCP - General Internal Medicine 03/10/22 Lisa Díaz [address] [facility] [address] Family Medicine 02/24/20 Search Engine Optimization Analyst Relationship Specialty Start Date End Date Armando Stephens CNP [address] [place] [address] PCP - General Internal Medicine 03/10/22 Lisa Díaz [address] [place] [address] [facility] 02/24/20 Search Engine Optimization Analyst Relationship Specialty Start Date End Date Armando Stephens CNP [address] [place] [address] PCP - General Internal Medicine 03/10/22 Lisa Díaz [address] [place] [address] [facility] 02/24/20 Search Engine Optimization Analyst Relationship Specialty Start Date End Date Armando Stephens CNP [address] [place] [address] PCP - General Internal Medicine 03/10/22 Lisa Díaz [address] [place] [address] [facility] 02/24/20 FOR RECORDS PERTAINING TO PATIENTS WHO ARE OR HAVE BEEN ENROLLED IN A CHEMICAL DEPENDENCY/SUBSTANCEABUSE PROGRAM, SOME INFORMATION MAY BE OMITTED. This clinical summary was aggregated from multiple sources. Caution should be exercised in using it in the provision of clinical care. This summary normalizes information from multiple sources, and as a consequence, information in this document may materially change the coding, format and clinical context of patient data. In addition, data may be omitted in some cases. CLINICAL DECISIONS SHOULD BE BASED ON THE PRIMARY CLINICAL RECORDS. [facility] [employer] [facility]. provides no warranty or guarantee of the accuracy or completeness of information in this document.
[2023-07-14 12:55] LABS: Hematocrit 41.6 % (37-47); Hemoglobin 13.5 g/dL (12.0-15.0); Mean Corp Hgb Conc 32.5 g/dL (32-36); Mean Corpuscular Hgb 29.3 pg (27.0-32.0); Mean Corpuscular Volume 90.2 fL (81-99); Mean Platelet Vol. 9.8 fl (6.2-12.0); Platelet Count 364 K/mm3 (150-450); RBC Distribution Width CV 13.8 % (11.6-14.6); RBC Distribution Width SD 45.7 fl (35.1-43.9); Red Blood Count 4.61 M/mm3 (4.2-5.4)
[2023-07-14 13:31] LABS: Microalbumin,Random Urine 57.7 mg/L (NO RANGE EST.); Microalbumin:Creatinine Ratio 58.9 mg/g CRE (<30 mg/g CRE)
[2023-07-14 14:07] LABS: ALB/GLOB Ratio 1.1 RATIO (0.9-2.4); AST(SGOT) 19 U/L (15-37); Alanine Aminotransfer ALT/SGPT 37 U/L (13-56); Albumin, Serum 3.9 g/dL (3.2-5.0); Alkaline Phosphatase 66 U/L (45-117); Anion Gap 4 (5-15); BUN 12 mg/dL (7-18); Calcium,Total 9.7 mg/dL (8.5-10.1); Chloride 105 mmol/L (98-107); Cholesterol 151 mg/dL (200); Creatinine, Serum 0.57 mg/dL (0.55-1.02); EST Glomerular Filtration Rate 112 mL/min (>60); Est Glom Filt Rate - Afr Amer 136 mL/min (>60); Globulin 3.6 g/dL (2.2-4.2); Glucose 152 mg/dL (74-106); High Density Lipoprotein 62 mg/dL; Protein, Total 7.5 g/dL (6.4-8.2); Sodium Level 138 mmol/L (136-145); Triglycerides 147 mg/dL; Very Low Density Lipoprotein 29 mg/dL (5-40)
== END | disposition home or self-care (01) ==
LOC: LAB 11:44
PROVIDERS: Referring Provider Nurse Practitioner Family; Visit Provider Nurse Practitioner Family
DX: E78.2 Mixed hyperlipidemia (principal); E11.65 Type 2 diabetes mellitus with hyperglycemia; I10 Essential (primary) hypertension
CPT/HCPCS: 36415; 80053; 80061; 82043; 82570; 85027

== ENCOUNTER 2023-09-17 10:01 | Emergency (ER) | payer MEDICARE, SELFPAY ==
[2023-09-17 10:02] VITALS: BP 119/65; PULSE 114; RESP 18; TEMP 36.2; O2SAT 98; BMI 28.1
--- NOTE | 2023-09-17 10:15 | RAD_ITS ---
EXAM: XR LEFT KNEE COMPLETE, 4 OR MORE VIEWS CLINICAL INDICATION: pain TECHNIQUE: Four or more views of the left knee. COMPARISON: No relevant prior studies available. FINDINGS: BONES/JOINTS: Lucency in the lateral tibial plateau articular surface suggesting a nondisplaced fracture which is age-indeterminate. Marginal osteophytosis in the weightbearing and patellofemoral compartments. Small to medium joint effusion. Patellar enthesopathy. SOFT TISSUES: No significant abnormality. No soft tissue swelling or gas. No radiopaque foreign body. RAD/Knee 4 or More Views IMPRESSION: 1. Lucency in the lateral tibial plateau articular surface suggesting a nondisplaced fracture which is age-indeterminate. Joint effusion. Consider follow-up imaging as clinically indicated. 2. Tricompartmental degenerative changes. Electronically Signed: Dennis Gross DO at 10:46 EDT ,
[2023-09-17 10:26] VITALS: BMI 29.0
--- NOTE | 2023-09-17 10:51 | RAD_ITS ---
EXAM: XR RIGHT TIBIA AND FIBULA, 2 VIEWS CLINICAL INDICATION: pain TECHNIQUE: Frontal and lateral views of the right tibia and fibula. COMPARISON: Knee on the same date FINDINGS: BONES/JOINTS: Cortical irregularity of the lateral tibial plateau perhaps indicative of a fracture. Degenerative changes at the knee and at the ankle. Apparent chronic medial malleolus fracture. No sclerotic or destructive changes observed. SOFT TISSUES: No significant abnormality. No soft tissue swelling or gas. No radiopaque foreign body. RAD/Tibia & Fibula 2 Views IMPRESSION: 1. Cortical irregularity of the lateral tibial plateau perhaps indicative of a fracture. 2. Degenerative changes at the knee and at the ankle. Apparent chronic medial malleolus fracture. Electronically Signed: Dennis Gross DO at 11:10 EDT ,
[2023-09-17] MEDS: Ketorolac 15 MG/ML Vial IM (11:04)
--- NOTE | 2023-09-17 11:41 | EDS_ITS ---
HPI History of Present Illness Chief Complaint: Lower Extremity Injury Narrative Narrative: 68-year-old female with right knee [facility] History (Updated 09/17/23 @ 11:[address] Carrington Bernstein, DO) Diabetes mellitus High cholesterol HTN (hypertension) Home Medications oxycodone-acetaminophen 5 mg-325 mg tablet (Percocet) 1 tab PO Q6H PRN pain 5 days #20 tabs 06/04/22 [Rx Last Taken Unknown] pioglitazone 30 mg tablet 30 mg PO DAILY 06/04/22 [History Last Taken Unknown] sitagliptin phosphate 50 mg-metformin 1,000 mg tablet (Janumet) 1 tab PO BID 06/04/22 [History Last Taken Unknown] ondansetron 4 mg disintegrating tablet 4 mg PO Q8H PRN PRN Nausea #20 tabs 05/27/23 [Rx Last Taken Unknown] oxymetazoline 0.05 % nasal mist (Afrin (oxymetazoline)) 2 spray intranasal Q12H PRN nasal congestion 3 days #15 mL 05/27/23 [Rx Last Taken Unknown] mupirocin 2 % topical ointment 1 applic topical BID #22 grams 08/03/23 [Rx Last Taken Unknown] hydrocodone-acetaminophen 5-325mg 5mg-325mg 1 tab PO Q6H 3 days #12 TABLETS 09/17/23 [Rx Last Taken Unknown] Allergy/AdvReac Type Severity Reaction Status Date / Time Food Allergies: Uncoded Allergy Swelling Verified 09/17/23 10:02 Social History Smoking Status: Never smoker EXAM Physical Exam Const Vital Signs: 09/17/23 10:02 Temperature 97.1 F L Temperature Source Temporal Pulse Rate 114 H Respiratory Rate 18 Blood Pressure 119/65 Blood Pressure Mean 83 Pulse Ox 98 Oxygen Delivery Method Room Air MDM MDM MDM Narrative Medical decision making narrative: Patient presenting with right leg pain. This is around the lateral tibial plateau and fibular region on the right leg. No bruising, edema. Knee exam is fairly unremarkable. Obtained 4 views of the right knee and 2 views of the tib- fib and on my interpretation there appears to be a small tibial plateau fracture which is nondisplaced on the lateral aspect. Radiology interprets and agrees. Patient counseled she will need to be in immobilizer and use crutches she is to be nonweightbearing. I explained to her that she will need to follow-up with orthopedics. Patient did not appear to be understanding these instructions and so asked her to call her daughter who was able to listen the instructions and acknowledges understanding. Since the patient is nonweightbearing and not supposed use her right leg she will need a ride home. Her daughter will arrange a ride home. Patient given [place] for pain for home. She is to follow-up with Dr. Paul I did speak with Dr. Paul. Return precautions discussed. Impression: 1. Tibial plateau fracture Lab Data Attestation: I reviewed the patient's lab results. Radiography Diagnostic Testing: Clinical Impression(s) from Imaging Studies Knee X-Ray 09/17/23 10:15 IMPRESSION: 1. Lucency in the lateral tibial plateau articular surface suggesting a nondisplaced fracture which is age-indeterminate. Joint effusion. Consider follow-up imaging as clinically indicated. 2. Tricompartmental degenerative changes. Electronically Signed: Dennis Gross DO at 10:46 EDT , ADDENDUM: 09/17/23 1116 IMPRESSION: undefined Tibia/Fibula X-Ray 09/17/23 10:51 IMPRESSION: 1. Cortical irregularity of the lateral tibial plateau perhaps indicative of a fracture. 2. Degenerative changes at the knee and at the ankle. Apparent chronic medial malleolus fracture. Electronically Signed: Dennis Gross DO at 11:10 EDT , Discharge Plan Triage Chief Complaint: Lower Extremity Injury ED Provider: Carrington Bernstein Dx/Rx/DC Orders Clinical Impression: Closed fracture of tibial plateau Prescriptions: New hydrocodone-acetaminophen 5-325 mg tablet 1 tab PO Q6H 3 Days Qty: 12 0RF No Action mupirocin 2 % ointment 1 applic topical BID Qty: 22 0RF pioglitazone 30 mg tablet 30 mg PO DAILY Janumet 50-1,000 mg Tablet 1 tab PO BID oxycodone-acetaminophen [Percocet] 5-325 mg tablet 1 tab PO Q6H PRN (Reason: pain) 5 Days Qty: 20 0RF ondansetron 4 mg tablet,disintegrating 4 mg PO Q8H PRN PRN (Reason: Nausea) Qty: 20 0RF Afrin (oxymetazoline) 0.05 % mist 2 spray intranasal Q12H PRN (Reason: nasal congestion) 3 Days Qty: 15 0RF [facility] Referrals: Jovi Paul MD [Med Staff - Active Staff] - [facility] - Disposition Disposition: Home, Self Care
--- NOTE | 2023-09-17 11:44 | CON.PCM.OR_ITS ---
HPI Consult Data Date of Consult: 09/17/23 HPI Narrative HPI Narrative: JESSICA POPE, is a 68 F who presents with knee pain after a stumble and trip while walking the dog. ED provider states non displaced lateral tib plateau fracture. No other concerns. [facility] Medical History (Updated 09/17/23 @ 11:[address] Carrington Bernstein DO) Diabetes mellitus High cholesterol HTN (hypertension) Home Medications oxycodone-acetaminophen 5 mg-325 mg tablet (Percocet) 1 tab PO Q6H PRN pain 5 days #20 tabs 06/04/22 [Rx Last Taken Unknown] pioglitazone 30 mg tablet 30 mg PO DAILY 06/04/22 [History Last Taken Unknown] sitagliptin phosphate 50 mg-metformin 1,000 mg tablet (Janumet) 1 tab PO BID 06/04/22 [History Last Taken Unknown] ondansetron 4 mg disintegrating tablet 4 mg PO Q8H PRN PRN Nausea #20 tabs 05/27/23 [Rx Last Taken Unknown] oxymetazoline 0.05 % nasal mist (Afrin (oxymetazoline)) 2 spray intranasal Q12H PRN nasal congestion 3 days #15 mL 05/27/23 [Rx Last Taken Unknown] mupirocin 2 % topical ointment 1 applic topical BID #22 grams 08/03/23 [Rx Last Taken Unknown] hydrocodone-acetaminophen 5-325mg 5mg-325mg 1 tab PO Q6H 3 days #12 TABLETS 09/17/23 [Rx Last Taken Unknown] Allergy/AdvReac Type Severity Reaction Status Date / Time Food Allergies: Uncoded Allergy Swelling Verified 09/17/23 10:02 Social History Smoking Status: Never smoker Vital Signs Vital Signs Vital Signs: 09/17/23 10:02 Temperature 97.1 F L Temperature Source Temporal Pulse Rate 114 H Respiratory Rate 18 Blood Pressure 119/65 Blood Pressure Mean 83 Pulse Ox 98 Oxygen Delivery Method Room Air Weight Weight: 169 lb 15.622 oz Body Mass Index (BMI) 29.0 Imaging Radiology Impression Knee X-Ray 09/17/23 10:15 IMPRESSION: 1. Lucency in the lateral tibial plateau articular surface suggesting a nondisplaced fracture which is age-indeterminate. Joint effusion. Consider follow-up imaging as clinically indicated. 2. Tricompartmental degenerative changes. Electronically Signed: Dennis Gross DO at 10:46 EDT , ADDENDUM: 09/17/23 1116 IMPRESSION: undefined Tibia/Fibula X-Ray 09/17/23 10:51 IMPRESSION: 1. Cortical irregularity of the lateral tibial plateau perhaps indicative of a fracture. 2. Degenerative changes at the knee and at the ankle. Apparent chronic medial malleolus fracture. Electronically Signed: Dennis PetersonDebbie Gross DO at 11:10 EDT , Assessment & Plan Assessment/Plan (1) Tibial plateau fracture: PLAN: 68 F with non displaced tib plateau fracture. NVI and no other concerns per ED provider. Suggest NWB, crutches and knee immobilizer for now, and patient will call the office Monday to arrange a good time to be seen this week.
--- NOTE | 2023-09-17 13:06 | ED.RN ---
unable to safely ambulate with crutches. she has a walker at home and she is asking for script for wheelchair. doctor updated.
[2023-09-17 13:31] VITALS: BP 122/76; PULSE 89; RESP 18; TEMP 36.7; O2SAT 97
== END 2023-09-17 13:32 | disposition home or self-care (01) ==
PROVIDERS: Emergency Provider Student in an Organized Health Care Education/Training Program; Visit Provider Student in an Organized Health Care Education/Training Program
DX: S82.141A Displaced bicondylar fracture of right tibia, initial encounter for closed fracture (principal); E11.9 Type 2 diabetes mellitus without complications; X58.XXXA Exposure to other specified factors, initial encounter
CPT/HCPCS: 73564; 73590; 96372; 99283

== ENCOUNTER → 2024-05-13 | Outpatient (CLI) | payer MEDICARE, SELFPAY ==
--- NOTE | 2024-05-13 09:14 | BI_ITS ---
MAMMOGRAPHY - BILATERAL SCREENING REASON FOR EXAM: Female, 69 years old. Routine annual screening examination. PERTINENT HISTORY: Non-contributory. TECHNIQUE: Digital bilateral breast greyson (3D mammographic acquisition) in the CC and MLO projections. 2-D mediolateral oblique (MLO) and craniocaudad (CC) views of both breasts were obtained. CAD: Full Field Digital Mammography with Computer Added Detection was performed. COMPARISON: Comparison is made with prior outside examination of March 01, 2023 and July 09, 2018. FINDINGS: Breast Composition: The breasts are heterogeneously dense, which may obscure small masses. There are no dominant masses or suspicious calcifications. Stable bilateral scattered calcifications more prominent than the right breast. No other significant abnormalities are identified. There has been no significant change since the prior study. BI/SCRN MAMM (CAD)W/GREYSON BILAT IMPRESSION: Stable bilateral screening mammogram. Yearly follow-up mammogram recommended. (A) ASSESSMENT CATEGORY: BIRADS Category 2: Benign. A letter regarding these results will be sent to the patient by the facility within 30 days. Approximately 10% of breast cancers are not detected by mammography. A normal mammogram should not delay biopsy of a clinically suspicious abnormality. [id number] Electronically Signed: Salomón Roberson MD at 10:33 EST ,
== END | disposition home or self-care (01) ==
LOC: OPBI 09:12
PROVIDERS: PCP Nurse Practitioner Family; Referring Provider Family Medicine; Visit Provider Family Medicine
DX: Z12.31 Encounter for screening mammogram for malignant neoplasm of breast (principal)
CPT/HCPCS: 77063; 77067

== ENCOUNTER → 2024-07-19 | Outpatient (CLI) | payer MEDICARE, SELFPAY ==
[2024-07-19 10:22] LABS: Hemoglobin A1c 11.5 % (3.8-5.6)
[2024-07-19 10:34] LABS: Vitamin B12 491 pg/mL (211-911)
[2024-07-19 11:02] LABS: Microalbumin,Random Urine 73.4 mg/L (NO RANGE EST.)
[2024-07-19 11:18] LABS: AST(SGOT) 29 U/L (15-37); Alanine Aminotransfer ALT/SGPT 48 U/L (13-56); Albumin, Serum 3.9 g/dL (3.2-5.0); Alkaline Phosphatase 63 U/L (45-117); Anion Gap 6 (5-15); BUN 13 mg/dL (7-18); BUN/Creat Ratio 17.6 RATIO (10-20); Calcium,Total 9.8 mg/dL (8.5-10.1); Chloride 101 mmol/L (98-107); Cholesterol 119 mg/dL (200); Creatinine, Serum 0.74 mg/dL (0.55-1.02); EST Glomerular Filtration Rate 83 mL/min (>60); Est Glom Filt Rate - Afr Amer 100 mL/min (>60); Ferritin 40 ng/mL (8-252); Globulin 3.9 g/dL (2.2-4.2); Glucose 246 mg/dL (74-106); High Density Lipoprotein 57 mg/dL; Magnesium 1.7 mg/dL (1.6-2.6); Potassium 4.6 mmol/L (3.5-5.1); Protein, Total 7.8 g/dL (6.4-8.2); Sodium Level 136 mmol/L (136-145); Triglycerides 120 mg/dL; Very Low Density Lipoprotein 24 mg/dL (5-40)
[2024-07-23 04:07] LABS: Zinc, Plasma or Serum 92 ug/dL (44-115)
== END | disposition home or self-care (01) ==
LOC: LAB 09:36
PROVIDERS: PCP Family Medicine; Referring Provider Family Medicine; Visit Provider Family Medicine
DX: E11.65 Type 2 diabetes mellitus with hyperglycemia (principal); E78.2 Mixed hyperlipidemia; I10 Essential (primary) hypertension; K13.0 Diseases of lips
CPT/HCPCS: 36415; 80053; 80061; 82043; 82570; 82607; 82728; 82746; 83036; 83735; 84630

== ENCOUNTER 2024-08-20 14:04 | Outpatient (RCR) | payer MEDICARE, SELFPAY | END 2024-08-23 23:59 | LOC: NS 14:04 | PROVIDERS: PCP Family Medicine; Referring Provider Family Medicine; Visit Provider Family Medicine | DX: Z71.3 Dietary counseling and surveillance (principal); E10.65 Type 1 diabetes mellitus with hyperglycemia | CPT/HCPCS: 97802 ==

== ENCOUNTER → 2024-08-29 | Outpatient (CLI) | payer MEDICARE, SELFPAY ==
--- NOTE | 2024-08-29 08:28 | BD_ITS ---
PROCEDURE: DEXA BONE DENSITY STUDY REASON FOR EXAM: F, age 69 y/o . Postmenopausal. TECHNIQUE: DEXA scan of the lumbar spine and both hips. COMPARISON: None. FINDINGS: T-SCORES Lumbar spine: 0.826 g per cm2 (T-score -2.0); Left hip: Left femoral neck bone mineral density 0.684 g per cm2 (T-score -1.5); Right hip: Right femoral neck bone mineral density 0.688 g per cm2 (T-score -1.5); FRAX* Results: 10 Year Probability of Fracture: Hip Fracture(1): 1.8% Major Osteoporotic Fracture(2): 15% *FRAX is a trademark of the [employer]'s [place] for Metabolic Bone Disease, World Health Organization (WHO) Collaborating [place]. 1-The 10-year probability of fracture may be lower than reported if the patient has received treatment. 2-Major Osteoporotic Fracture: Clinical Spine, Forearm, Hip or Shoulder. The T-scores are also available for review on the [facility] PACS or by accessing the [facility] electronic medical record. BD/Dexa Bone Density Study IMPRESSION: Osteopenia. Reading Location: [id number]
== END | disposition home or self-care (01) ==
LOC: OPBD 08:26
PROVIDERS: PCP Family Medicine; Referring Provider Family Medicine; Visit Provider Family Medicine
DX: M81.0 Age-related osteoporosis without current pathological fracture (principal)
CPT/HCPCS: 77080

== ENCOUNTER 2024-09-16 14:11 | Outpatient (RCR) | payer MEDICARE, SELFPAY | END 2024-09-23 23:59 | LOC: NS 14:11 | PROVIDERS: PCP Family Medicine; Referring Provider Family Medicine; Visit Provider Family Medicine | DX: Z71.3 Dietary counseling and surveillance (principal); E10.65 Type 1 diabetes mellitus with hyperglycemia | CPT/HCPCS: 97803 ==

== ENCOUNTER 2024-10-28 14:05 | Outpatient (RCR) | payer MEDICARE, SELFPAY | END 2024-11-23 23:59 | LOC: NS 14:05 | PROVIDERS: PCP Family Medicine; Referring Provider Family Medicine; Visit Provider Family Medicine | DX: Z71.3 Dietary counseling and surveillance (principal); E10.65 Type 1 diabetes mellitus with hyperglycemia | CPT/HCPCS: 97803 ==

== ENCOUNTER → 2024-11-11 | Outpatient (CLI) | payer MEDICARE, SELFPAY ==
--- NOTE | 2024-11-11 11:35 | RAD_ITS ---
PROCEDURE: SHOULDER MIN 2 VIEWS 11/11/2024 REASON FOR EXAM: PAIN IN SHOULDER TECHNIQUE: 43 view(s) of the right shoulder COMPARISON: Right shoulder radiographs 08/12/2021 FINDINGS: No displaced fracture or dislocation. There are calcifications adjacent to the greater tuberosity of the humerus. Phob-[id number]-mxuqrnne joint space narrowing and osteophyte formation at the acromioclavicular and glenohumeral joints. The visualized hemithorax is unremarkable. Soft tissues are unremarkable. Chronic deformities of several right-sided ribs. RAD/Shoulder min 2 Views IMPRESSION: 1. Calcifications adjacent to the humeral head, likely the result of calcific tendinopathy. 2. [id number] osteoarthritis of the acromioclavicular and glenohumeral j oints. Reading Location: [id number]
== END | disposition home or self-care (01) ==
LOC: RAD 11:31
PROVIDERS: PCP Family Medicine; Referring Provider Family Medicine; Visit Provider Family Medicine
DX: M25.511 Pain in right shoulder (principal)
CPT/HCPCS: 73030

== ENCOUNTER 2025-01-27 11:04 | Outpatient (RCR) | payer MEDICARE, SELFPAY | END 2025-02-23 23:59 | LOC: NS 11:04 | PROVIDERS: PCP Family Medicine; Referring Provider Family Medicine; Visit Provider Family Medicine | DX: Z71.3 Dietary counseling and surveillance (principal); E10.65 Type 1 diabetes mellitus with hyperglycemia | CPT/HCPCS: 97803 ==